=== PATIENT | female | born 1990 | race Caucasian/White ===

== ENCOUNTER 2020-07-22 19:46 | Emergency (ER) | payer SELFPAY ==
[2020-07-22 19:48] VITALS: BP 123/87; PULSE 96; RESP 18; TEMP 37; O2SAT 97; BMI 39.1
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
[2020-07-22] MEDS: Ibuprofen 400 MG Tablet 800 MG PO (21:03)
== END 2020-07-22 21:09 | disposition home or self-care (01) ==
LOC: ED 20:43
PROVIDERS: Emergency Provider Emergency Medicine
DX: S50.01XA Contusion of right elbow, initial encounter (principal); F17.200 Nicotine dependence, unspecified, uncomplicated; V43.62XA Car passenger injured in collision with other type car in traffic accident, initial encounter; Y93.I9 Activity, other involving external motion; Y92.410 Unspecified street and highway as the place of occurrence of the external cause; Y99.8 Other external cause status
CPT/HCPCS: 73080; 99284

== ENCOUNTER 2020-07-25 12:02 | Emergency (ER) | payer SELFPAY ==
[2020-07-25 12:03] VITALS: BP 138/79; PULSE 91; RESP 17; TEMP 36.3; O2SAT 100; BMI 37.2
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
[2020-07-25] MEDS: HYDROcodone Bitartrate/Apap 5/325 Tablet PO (12:46)
[2020-07-25] MEDS: Naproxen 500 MG Tablet PO (12:46)
== END 2020-07-25 13:42 | disposition home or self-care (01) ==
PROVIDERS: Emergency Provider Emergency Medicine
DX: S90.31XA Contusion of right foot, initial encounter (principal); S80.02XA Contusion of left knee, initial encounter; F17.200 Nicotine dependence, unspecified, uncomplicated; E66.9 Obesity, unspecified; V43.62XA Car passenger injured in collision with other type car in traffic accident, initial encounter; Y93.I9 Activity, other involving external motion; Y92.410 Unspecified street and highway as the place of occurrence of the external cause; Y99.8 Other external cause status
CPT/HCPCS: 73564; 73630; 99283

== ENCOUNTER 2021-05-16 12:49 | Emergency (ER) | payer MEDICAID, SELFPAY ==
[2021-05-16 12:49] VITALS: BP 142/91; PULSE 119; RESP 18; TEMP 37; O2SAT 98; BMI 35.4
--- NOTE | 2021-05-16 14:19 | US_ITS ---
STUDY: ULTRASOUND OF THE FEMALE PELVIS - COMPLETE REASON FOR EXAM: Female, 31 years old. Pelvic pain, r.o torsion LMP: 05/16/2021. TECHNIQUE: Transabdominal and Transvaginal TECHNICAL QUALITY: Adequate. COMPARISON: None. FINDINGS: The uterus is anteverted and is in a midline position. The uterus measures 7.9 cm x 5.0 cm x 4 cm. Normal uterine cervix. The endometrium measures 7 mm in thickness, and is hyperechoic. There is no demonstrated endometrial mass. There is no demonstrated myometrial mass. I.U.D. - The patient does not have an I.U.D. The right ovary is visualized. The right ovary measures 2.3 cm x 1.6 x 1.5 cm. There is no right ovarian cyst or ovarian mass. There is no visualized right adnexal mass or complex lesion. There is normal arterial and normal venous vascularity. The left ovary is visualized. The left ovary measures 2.8 cm x 2.3 cm x 1.9 cm. There is no left ovarian cyst or ovarian mass. There is no visualized left adnexal mass or complex lesion. There is normal arterial and normal venous vascularity. There is a moderate amount of fluid in the cul-de-sac. US/Transvaginal Non- IMPRESSION: Moderate amount of free fluid is seen in the cul-de-sac. Electronically Signed: Bladimir Hussein MD at 15:56 EDT , Service support ,
--- NOTE | 2021-05-16 14:21 | EX.ED.DYSGE1 ---
HPI History of Present Illness Chief Complaint: Abd Pain Informant: patient Onset/Context/Timing Onset: Yesterday Narrative Narrative: Patient is a 31-year-old female with history of PCOS presenting with lower abdominal cramping and abdominal pain. She states she has a mild nausea associated with it. She states that she started feel like she was having menstrual cramps yesterday but today she had pain that made her fall to the floor because it was so bad. She states is more sharp than menstrual cramps. She started having menstrual bleeding and she states it is like heavy period flow. She went to urgent care and was instructed to come to the emergency room. She not take anything for pain prior to arrival. Last menstrual period before today was 3 weeks ago. [facility] Medical History PCOS (polycystic ovarian syndrome) Home Medications ibuprofen 600 mg PO Q6H PRN #20 tab 05/16/21 [Rx Last Taken Unknown] Allergy/AdvReac Type Severity Reaction Status Date / Time No Known Allergies Allergy Verified 05/16/21 12:52 Social History Smoking Status: Current every day smoker tobacco type: cigarettes ROS ROS ED Constitutional Constitutional ED: Denies chills, fever(s) or malaise Eyes Eyes: Denies blurry vision or loss of vision ENT ENT ED: Denies rhinorrhea or sore throat Cardiovascular Cardiovascular: Denies chest pain or dizziness Respiratory/Chest Respiratory/Chest: Denies cough or dyspnea Gastrointestinal Gastrointestinal: Reports abdominal pain and nausea; Denies vomiting Genitourinary Genitourinary ED: Denies dysuria or hematuria Musculoskeletal Musculoskeletal: Denies arthralgias or myalgias Integumentary Denies rash or wounds Neurologic Neurologic: Denies focal weakness or headache(s) Psychiatric Psychiatric: Denies anxiety or behavioral changes EXAM Physical Exam Const Vital Signs: 05/16/21 12:49 05/16/21 16:54 Temperature 98.6 F Temperature Source Temporal Pulse Rate 119 H 77 Respiratory Rate 18 15 Blood Pressure 142/91 H 120/77 Blood Pressure Mean 108 Pulse Ox 98 97 Oxygen Delivery Method Room Air Positive well nourished, well developed and no apparent distress General Appearance ED: well developed HEENT Reports normocephalic atraumatic Nose: no nasal discharge External Ear: external ears normal Mouth ED: Yes moist mucous membranes normal Eyes PERRL and EOMs intact bilaterally Neck full ROM and no meningeal signs Chest Wall inspection of chest normal Resp normal respiratory effort and normal air movement Cardio regular rate, regular rhythm and no murmurs GI normal to inspection, nondistended, normoactive bowel sounds Palpation: soft and tender LLQ, RLQ and suprapubic; Negative for guarding Back/Spine no CVA tenderness Extremity normal to inspection and full ROM Neuro oriented x3 and no focal motor deficits Sensorium / Orientation: alert Psych mental status grossly normal and thought process normal Skin no rashes or lesions noted and no wounds MDM MDM MDM Narrative Medical decision making narrative: Patient is evaluated for pelvic cramping with associated vaginal bleeding. She did start her. But she is never had cramps this bad associate with it. She states he has a history of ovarian cyst. CBC is most consistent with vaginal contamination. Her abdomen is soft he does have tenderness in her pelvic region. She is given oral ibuprofen and Zofran with improvement of her hypertension and tachycardia. Transvaginal ultrasound shows free fluid in the cul-de-sac but no signs of torsion or ovarian cyst. I suspect the fluid is physiologic from her menstrual cycle. She is given 1 dose of [place] in the ER. She be discharged home with NSAID therapy and GLASS TECHNICIAN follow-up. She is referred to gynecology. She is counseled return precautions. Patient is counseled on signs and symptoms requiring return to the emergency room. Patient verbalizes agreement and understand this plan. Patient discharged home in stable and improved condition. Lab Data Attestation: I reviewed the patient's lab results. Labs: Laboratory Results - last 24 hr 05/16/21 14:45 Urine Color Yellow Urine Clarity Clear Urine pH 6.5 Ur Specific [place] 1.005 Urine Protein Negative Urine Glucose (UA) Normal Urine Ketones Negative Urine Occult Blood 250 H Urine Nitrite Negative Urine Bilirubin Negative Urine Urobilinogen Normal Ur Leukocyte Esterase 25 H Urine RBC 0-5 SEEN Urine WBC 0 SEEN Ur Squamous Epith Cells 0-5 SEEN Urine Bacteria 0 SEEN Urine Mucus 0 SEEN Urine Test Negative Radiography Diagnostic Testing: Radiology Impression Transvaginal US 05/16/21 14:19 IMPRESSION: Moderate amount of free fluid is seen in the cul-de-sac. Electronically Signed: Bladimir Hussein MD at 15:56 EDT , Service support , Discharge Plan Triage Chief Complaint: Abd Pain ED Provider: Olivia Aiken Dx/Rx/DC Orders Clinical Impression: Pelvic pain, Painful menstruation Instructions: ED MENSTRUAL CRAMPING, ED Pelvic Pain, Unknown Cause Prescriptions: New ibuprofen 600 mg tablet 600 mg PO Q6H PRN (Reason: pain) Qty: 20 RF: 0 Primary Care Provider: Care Physician,No Primary Referrals: Stephanie Dunaway MD [STAFF PHYSICIAN] - Care Physician,No Primary [Primary Care Provider] - Disposition Disposition: Home, Self Care Discharge Date/Time: 05/16/21 16:57
[2021-05-16] MEDS: Ibuprofen 600 MG Tablet PO (14:51)
[2021-05-16] MEDS: Ondansetron ODT 4 MG Tablet PO (14:52)
[2021-05-16 14:53] LABS: Bacteria 0 SEEN /hpf (None Seen); Mucous, Urine 0 SEEN /hpf (<or=2+); White Blood Cells 0 SEEN /hpf (0-5)
[2021-05-16 14:55] LABS: Color, Urine Yellow (Yellow); Glucose, Dipstick Normal (Normal); Ketone-Dipstick Negative (Negative); Leukocyte Esterase-Dipstick 25 /ul (Negative); Nitrite-Dipstick Negative (Negative); Occult Blood-Urine 250 /ul (Negative); Protein-Dipstick Negative (Negative); Specific Gravity, Urine 1.005 (1.002-1.030); Urine Bilirubin Dipstick Negative (Negative); Urine Clarity Clear (Clear); Urine Urobilinogen Normal (Normal); Urine pH 6.5 (5.0 - 8.0)
[2021-05-16 15:02] LABS: Red Blood Cells-Urine 0-5 SEEN /hpf (0-5); Squamous Epithelial Cells - UA 0-5 SEEN /hpf (5-10)
[2021-05-16 15:03] LABS: Internal QC Validated? YES +Cl - CLEAR BKGD; Pregnancy, Urine Negative Negative
[2021-05-16] MEDS: HYDROcodone Bitartrate/Apap 5/325 Tablet PO (16:52)
[2021-05-16 16:54] VITALS: BP 120/77; PULSE 77; RESP 15; O2SAT 97
== END 2021-05-16 16:57 | disposition home or self-care (01) ==
PROVIDERS: Emergency Provider Emergency Medicine
DX: N94.6 Dysmenorrhea, unspecified (principal); R10.2 Pelvic and perineal pain; F17.210 Nicotine dependence, cigarettes, uncomplicated
CPT/HCPCS: 76830; 81001; 81025; 99283

== ENCOUNTER 2021-05-23 13:48 | Emergency (ER) | payer MEDICAID, SELFPAY ==
[2021-05-23 13:49] VITALS: BP 117/85; PULSE 109; RESP 16; TEMP 36.2; O2SAT 98; BMI 35.4
[2021-05-23] MEDS: Ondansetron 4 MG/2 ML Vial IV (15:10)
[2021-05-23] MEDS: Morphine 4 MG/ML Syringe IV (15:11)
[2021-05-23] MEDS: 0.9% Normal Saline 1,000 ML 125 ML IV (15:13)
[2021-05-23 15:19] LABS: Absolute Neutrophil Count 16.9 X10^3/uL (2.0-7.7); Basophil# 0.04 X10^3/uL; Basophil% 0.2 % (0-1); Eosinophil# 0.07 X10^3/uL; Eosinophils% 0.4 % (0-5); Hematocrit 46.6 % (37-47); Hemoglobin 15.5 g/dL (12.0-15.0); Lymphocyte % 5.3 % (19-41); Mean Corp Hgb Conc 33.3 g/dL (32-36); Mean Corpuscular Hgb 30.3 pg (27.0-32.0); Mean Corpuscular Volume 91.2 fL (81-99); Mean Platelet Vol. 9.7 fl (6.2-12.0); Monocyte# 0.83 X10^3/uL; Monocyte% 4.4 % (0-10); NRBC Flagged by Analyzer 0 % (0-5); Neutrophil # 16.92 X10^3/uL (2.7-7.7); Neutrophil % 89.3 % (47-70); Platelet Count 352 K/mm3 (150-450); RBC Distribution Width CV 12.1 % (11.6-14.6); RBC Distribution Width SD 40.5 fl (35.1-43.9); Red Blood Count 5.11 M/mm3 (4.2-5.4); White Blood Count 18.9 K/mm3 (4.4-11.0)
[2021-05-23 15:35] LABS: AST(SGOT) 12 U/L (15-37); Alanine Aminotransfer ALT/SGPT 30 U/L (13-56); Albumin, Serum 3.9 g/dL (3.2-5.0); Alkaline Phosphatase 78 U/L (45-117); Anion Gap 7 (5-15); BUN 9 mg/dL (7-18); BUN/Creat Ratio 9.4 RATIO (10-20); Calcium,Total 9.8 mg/dL (8.5-10.1); Chloride 106 mmol/L (98-107); Creatinine, Serum 0.96 mg/dL (0.55-1.02); EST Glomerular Filtration Rate 71 mL/min (>60); Est Glom Filt Rate - Afr Amer 86 mL/min (>60); Estimated Creatinine Clearance 68.95 ml/min; Globulin 4.1 g/dL (2.2-4.2); Glucose 109 mg/dL (74-106); Lipase 50 U/L (73-393); Sodium Level 140 mmol/L (136-145)
[2021-05-23 16:30] LABS: Bacteria 0 SEEN /hpf (None Seen); Mucous, Urine 0 SEEN /hpf (<or=2+); Red Blood Cells-Urine 0 SEEN /hpf (0-5)
[2021-05-23 16:34] LABS: Color, Urine Yellow (Yellow); Glucose, Dipstick Normal (Normal); Ketone-Dipstick Negative (Negative); Leukocyte Esterase-Dipstick Negative /ul (Negative); Nitrite-Dipstick Negative (Negative); Occult Blood-Urine Negative /ul (Negative); Protein-Dipstick Negative (Negative); Urine Bilirubin Dipstick Negative (Negative); Urine Clarity Clear (Clear); Urine Urobilinogen Normal (Normal)
[2021-05-23 16:41] LABS: White Blood Cells 0-5 SEEN /hpf (0-5)
[2021-05-23 16:42] LABS: Internal QC Validated? YES +Cl - CLEAR BKGD; Pregnancy, Urine Negative Negative; Squamous Epithelial Cells - UA 0-5 SEEN /hpf (5-10)
--- NOTE | 2021-05-23 16:52 | CT_ITS ---
STUDY: CT ABDOMEN AND PELVIS WITH CONTRAST REASON FOR EXAM: Female, 31 years old. LLQ pain, fever RADIATION DOSAGE (If Supplied By Facility): CTDIvol = ( 16.08 ) mGy, DLP = ( 1150.27 ) mGycm TECHNIQUE: Transaxial images were obtained from the dome of the diaphragm to the symphysis pubis without oral contrast. IV 100mL Isovue-370 was administered. Sagittal and coronal images were reconstructed. Individualized dose optimization techniques were used for this CT. COMPARISON: None. FINDINGS: The visualized lung bases are unremarkable. The visualized portions of the heart are within normal limits. Normal liver. Normal gallbladder and extrahepatic biliary system. Normal spleen. Normal pancreas. Normal bilateral adrenal glands. Normal right kidney. Normal left kidney. Normal visualized stomach. Normal small intestine. There is diffuse submucosal thickening of the sigmoid colon with associated induration of the pericolonic fat suggesting a focal colitis. This is likely infectious or inflammatory. There is a subtle low-density 1.9 x 1.5 cm extra luminal collection which may represent an abscess. There is no air within it. Given the patient''s age, neoplastic process is unlikely but follow-up colonoscopy is recommended once the acute inflammatory changes have resolved The appendix is visualized and appears normal. Appendix seen on coronal recon images 55 through 60 Normal abdominal aorta. Normal inferior vena cava. Normal retroperitoneum. Normal urinary bladder. Normal appearing uterus. Physiologic ovarian cysts noted. Small amount of free fluid in the dependent pelvis likely due to the acute inflammation described above. Normal abdominal wall. Normal osseous structures. CT/Abdomen/Pelvis W IV Cont ONLY IMPRESSION: Acute inflammatory process involving the majority of the sigmoid colon with pericolonic inflammatory stranding and extraluminal low-density collection which may represent an abscess. There is no perforation. Further evaluation with colonoscopy is recommended once the acute inflammatory changes have resolved. Free fluid in the dependent pelvis likely from the inflammatory process described above No suspicious solid organ abnormality Electronically Signed: Kuldip Real MD at 17:22 EDT , Service support ,
--- NOTE | 2021-05-23 17:40 | EDS_ITS ---
HPI HPI - GI History of Present Illness Chief Complaint: Abd Pain Narrative Narrative: Patient presenting for evaluation secondary to abdominal pain. Patient states that she was here around a week ago for an onset of abdominal pain. She had work-up including pelvic ultrasound and lab work and was discharged with thoughts that this was secondary to dysmenorrhea. Patient states that she had complete resolution of her pain, but over the course of the last 2 to 3 days has had reemergence of the pain. Tender lower abdomen suprapubic and left side is worse with palpation's been associated with nausea. Patient denies any vomiting. She denies any diarrhea. She denies any urinary signs or symptoms of vaginal discharge or bleeding. Patient states that she is never had any history of abdominal surgeries in the past. Review of systems otherwise negative. PFSH PFSH Medical History PCOS (polycystic ovarian syndrome) Home Medications acetaminophen 500 mg PO Q6H PRN #1 cap 05/23/21 [Rx Last Taken Unknown] ibuprofen 400 mg PO Q6H PRN #1 tab 05/23/21 [Rx Last Taken Unknown] levofloxacin 750 mg PO DAILY #7 tab 05/23/21 [Rx Last Taken Unknown] metronidazole 500 mg PO Q6H #28 tab 05/23/21 [Rx Last Taken Unknown] oxycodone 5 mg PO Q6H PRN 3 Days #12 tab 05/23/21 [Rx Last Taken Unknown] Allergy/AdvReac Type Severity Reaction Status Date / Time No Known Allergies Allergy Verified 05/16/21 12:52 Surgical History History of D&C Social History Smoking Status: Current every day smoker tobacco type: cigarettes ROS ROS ED Constitutional Constitutional ED: Denies chills or fever(s) ENT ENT ED: Denies sore throat Cardiovascular Cardiovascular: Denies chest pain Respiratory/Chest Respiratory/Chest: Denies cough or dyspnea Gastrointestinal Gastrointestinal: Reports abdominal pain and nausea Genitourinary Genitourinary ED: Denies dysuria, hematuria or urinary frequency Musculoskeletal Musculoskeletal: Denies myalgias Integumentary Denies rash Neurologic Neurologic: Denies paresthesias or weakness Psychiatric Psychiatric: Denies depression Endocrine Endocrinology: Denies polyuria Hematologic/Lymphatic Hematologic/Lymphatic: Denies easy bleeding or easy bruising Allergic/Immunologic Allergic/Immunologic ED: Denies urticaria EXAM Physical Exam Const Vital Signs: 05/23/21 13:49 Temperature 97.1 F L Temperature Source Temporal Pulse Rate 109 H Respiratory Rate 16 Blood Pressure 117/85 H Blood Pressure Mean 95 Pulse Ox 98 Oxygen Delivery Method Room Air Positive well nourished and well developed General Appearance ED: well developed and NAD HEENT normocephalic and atraumatic Eyes EOMs intact bilaterally General Eye ED: Negative for pale conjunctiva or scleral icterus Neck no lymphadenopathy and supple Resp normal respiratory effort and clear to auscultation bilaterally Cardio regular rate, regular rhythm, no murmurs and peripheral pulses 2+ throughout GI non-distended and no masses Palpation: soft and tender LLQ and suprapubic; Negative for guarding, rigid or rebound tenderness present Back/Spine no CVA tenderness Extremity full ROM General Extremety ED: Negative for edema General Extremity: Negative for edema Neuro moves all extremities and no sensory deficits noted Sensorium / Orientation: alert, oriented to person, oriented to place and oriented to time Motor Exam: strength 5/5 throughout Psych mental status grossly normal Skin Rashes: no rashes MDM MDM MDM Narrative Medical decision making narrative: Patient presented secondary to abdominal pain. I reviewed her records, she had a basically negative pelvic ultrasound except for some free fluid. Repeat laboratory work-up was obtained. Patient was noted to have a leukocytosis at 18.9 thousand with a neutrophilic predominance. Chemistry and liver panel were found to be unremarkable urinalysis was negative, patient was not . She was given morphine and Zofran for treatment of pain. CT abdomen and pelvis demonstrates the patient to have inflammatory changes of her sigmoid colon, and potential development of an area of abscess. Patient was started on Zosyn. A believe the patient requires admission at this point. This could potentially be diverticulitis versus localized colitis versus inflammatory bowel disease versus tumor, but the patient will require colonoscopy at some point. Patient was discussed with the hospitalist, Dr Ritter, who requested that the patient be discussed with general surgery. I discussed the patient with general surgery, Dr Del Real who after reviewing the CT does not feel this to require surgery. I conveyed this to Dr. Ritter who agreed to see the patient Lab Data Labs: Laboratory Results - last 24 hr 05/23/21 05/23/21 05/23/21 15:10 15:10 16:24 WBC 18.9 H RBC 5.11 Hgb 15.5 H Hct 46.6 MCV 91.2 MCH 30.3 MCHC 33.3 RDW Std Deviation 40.5 RDW Coeff of Joey 12.1 Plt Count 352 MPV 9.7 Immature Gran % (Auto) 0.400 Neut % (Auto) 89.3 H Lymph % (Auto) 5.3 L [place] % (Auto) 4.4 Eos % (Auto) 0.4 Baso % (Auto) 0.2 Absolute Neuts (auto) 16.9 H Absolute Lymphs (auto) 1.00 Nucleated RBC % 0 Sodium 140 Potassium 4.0 Chloride 106 Carbon Dioxide 27.0 Anion Gap 7 BUN 9 Creatinine 0.96 Estim Creat Clear Calc 68.95 Est GFR (MDRD) Af Amer 86 Est GFR (MDRD) Non-Af 71 BUN/Creatinine Ratio 9.4 L Glucose 109 H Calcium 9.8 Total Bilirubin 0.40 AST 12 L ALT 30 Alkaline Phosphatase 78 Total Protein 8.0 Albumin 3.9 Globulin 4.1 Albumin/Globulin Ratio 1.0 Lipase 50 L Urine Color Yellow Urine Clarity Clear Urine pH 6.0 Ur Specific [place] 1.030 Urine Protein Negative Urine Glucose (UA) Normal Urine Ketones Negative Urine Occult Blood Negative Urine Nitrite Negative Urine Bilirubin Negative Urine Urobilinogen Normal Ur Leukocyte Esterase Negative Urine RBC 0 SEEN Urine WBC 0-5 SEEN Ur Squamous Epith Cells 0-5 SEEN Urine Bacteria 0 SEEN Urine Mucus 0 SEEN Urine Test Negative Radiography Diagnostic Testing: Radiology Impression Abdomen/Pelvis CT 05/23/21 16:52 IMPRESSION: Acute inflammatory process involving the majority of the sigmoid colon with pericolonic inflammatory stranding and extraluminal low-density collection which may represent an abscess. There is no perforation. Further evaluation with colonoscopy is recommended once the acute inflammatory changes have resolved. Free fluid in the dependent pelvis likely from the inflammatory process described above No suspicious solid organ abnormality Electronically Signed: Kuldip Real MD at 17:22 EDT , Service support , Discharge Plan Triage Chief Complaint: Abd Pain ED Provider: Ruhlin,Colton Dx/Rx/DC Orders Clinical Impression: Colitis, Intra-abdominal abscess Prescriptions: New levofloxacin 750 mg tablet 750 mg PO DAILY Qty: 7 RF: 0 metronidazole 500 mg tablet 500 mg PO Q6H Qty: 28 RF: 0 oxycodone 5 mg tablet 5 mg PO Q6H PRN (Reason: pain (scale score 7-10)) 3 Days Qty: 12 RF: 0 ibuprofen 400 mg tablet 400 mg PO Q6H PRN (Reason: fever or pain) Qty: 1 RF: 0 acetaminophen 500 mg capsule 500 mg PO Q6H PRN (Reason: fever or pain) Qty: 1 RF: 0 Primary Care Provider: Care Physician,No Primary Referrals: Kayla Del Real MD [STAFF PHYSICIAN] - 05/24/21 1:00 pm (Follow up after 1pm. Call prior.) Care Physician,No Primary [Primary Care Provider] - Disposition Disposition: Acute Care Hospital [facility]
--- NOTE | 2021-05-23 17:48 | NURSING ---
dr andrea mendiola
--- NOTE | 2021-05-23 18:28 | PCM.DC ---
Discharge Instructions Diet Discharge Diet: - (Clear liquid diet until seen by Dr. Del Real) Dressing / Incision Call your doctor if you observe: Fever of 101 or Higher and - (worsening abdominal pain) Follow Up Care Test Results: Test results from this visit will be discussed in further detail at your follow-up appointment, if applicable. Discharge Plan Triage Chief Complaint: Abd Pain ED Provider: Colton Hayes Dx/Rx/DC Orders Clinical Impression: Colitis Prescriptions: New levofloxacin 750 mg tablet 750 mg PO DAILY Qty: 7 RF: 0 metronidazole 500 mg tablet 500 mg PO Q6H Qty: 28 RF: 0 oxycodone 5 mg tablet 5 mg PO Q6H PRN (Reason: pain (scale score 7-10)) 3 Days Qty: 12 RF: 0 ibuprofen 400 mg tablet 400 mg PO Q6H PRN (Reason: fever or pain) Qty: 1 RF: 0 acetaminophen 500 mg capsule 500 mg PO Q6H PRN (Reason: fever or pain) Qty: 1 RF: 0 Primary Care Provider: Care Physician,No Primary Referrals: Care Physician,No Primary [Primary Care Provider] - Kayla Del Real MD [STAFF PHYSICIAN] - 05/24/21 1:00 pm (Follow up after 1pm. Call prior.) Disposition Disposition: Home, Self Care
--- NOTE | 2021-05-23 18:36 | PCM.CONS.GEN ---
Assessment & Plan Assessment/Plan (1) Colitis: PLAN: 1. Acute diverticulitis Reviewed this with Dr. Del Real, who does not feel the patient has an abscess she states that the patient to follow-up with her tomorrow after 1PM and to continue with clear liquid diet. Discussed with the patient and offered the patient the option to be admitted to continue with IV antibiotics or to follow-up general surgery tomorrow continue with oral antibiotics. Patient chose the latter. Patient has been ordered Pipracil/tazobactam and patient can be discharged after that. While the patient complete a 7-day course of levofloxacin and metronidazole. Patient does have abdominal pain so she also received 3-day course of oxycodone but she can also take acetaminophen and ibuprofen. Patient made aware of the potential risk of perforation which she would have severe abdominal pain. There is no evidence of that of that at this time. Informed patient that she will need a colonoscopy but colonoscopy is not indicated given the acute inflammation that she is currently experiencing and the potential risk for perforation. She will need that in the future. HPI Consult Data Date of Consult: 05/23/21 HPI Narrative Reason for Consultation: Diverticulitis HPI Narrative: SY GIBBS, is a 31 F who presents 1 week of abdominal pain. Was seen and was thought to have had menstrual cramps. Pain waxes and wanes but overall has gotten worse. Has been eating and drinking during this time. So presented to the emergency room today and had a CAT scan that showed acute inflammatory process involving the majority of the sigmoid colon with a pericolonic inflammatory stranding with extraluminal low-density collection. That may represent an abscess. The hospitalist service was contacted for admission. Patient has never had diverticulitis before. [facility] Medical History PCOS (polycystic ovarian syndrome) Home Medications acetaminophen 500 mg PO Q6H PRN #1 cap 05/23/21 [Rx Last Taken Unknown] ibuprofen 400 mg PO Q6H PRN #1 tab 05/23/21 [Rx Last Taken Unknown] levofloxacin 750 mg PO DAILY #7 tab 05/23/21 [Rx Last Taken Unknown] metronidazole 500 mg PO Q6H #28 tab 05/23/21 [Rx Last Taken Unknown] oxycodone 5 mg PO Q6H PRN 3 Days #12 tab 05/23/21 [Rx Last Taken Unknown] Allergy/AdvReac Type Severity Reaction Status Date / Time No Known Allergies Allergy Verified 05/16/21 12:52 Surgical History History of D&C Social History Smoking Status: Current every day smoker tobacco type: cigarettes ROS ROS Narrative Chills. No vomiting. Nausea. Some difficulty urinating. All review of systems were negative except as mentioned above in the history of present illness and the other review of systems. Last was. Was a week ago. Has not been sexually active since that time. Physical Exam Const alert General Appearance: cooperative HEENT normocephalic Resp normal respiratory effort, no retractions, no use of accessory muscles and clear to auscultation bilaterally Cardio regular rate, regular rhythm, S1 normal heart sound and S2 normal heart sound GI GI Narrative: Slightly distended. No rebound tenderness. Mild diffuse tenderness. Extremity normal to inspection and full ROM Skin no rashes or lesions noted Neuro Sensorium / Orientation: awake and alert Lab / Micro Data Attestation: I reviewed the patient's lab results. Result Diagrams: 05/23/21 15:10 05/23/21 15:10 Labs: Laboratory Results - last 24 hr 05/23/21 15:10: WBC 18.9 H, RBC 5.11, Hgb 15.5 H, Hct 46.6, MCV 91.2, MCH 30.3, MCHC 33.3, RDW Std Deviation 40.5, RDW Coeff of Joey 12.1, Plt Count 352, MPV 9.7, Immature Gran % (Auto) 0.400, Neut % (Auto) 89.3 H, Lymph % (Auto) 5.3 L, [place] % (Auto) 4.4, Eos % (Auto) 0.4, Baso % (Auto) 0.2, Absolute Neuts (auto) 16.9 H, Absolute Lymphs (auto) 1.00, Nucleated RBC % 0 05/23/21 15:10: Sodium 140, Potassium 4.0, Chloride 106, Carbon Dioxide 27.0, Anion Gap 7, BUN 9, Creatinine 0.96, Estim Creat Clear Calc 68.95, Est GFR (MDRD) Af Amer 86, Est GFR (MDRD) Non-Af 71, BUN/Creatinine Ratio 9.4 L, Glucose 109 H, Calcium 9.8, Total Bilirubin 0.40, AST 12 L, ALT 30, Alkaline Phosphatase 78, Total Protein 8.0, Albumin 3.9, Globulin 4.1, Albumin/Globulin Ratio 1.0, Lipase 50 L 05/23/21 16:24: Urine Color Yellow, Urine Clarity Clear, Urine pH 6.0, Ur Specific [place] 1.030, Urine Protein Negative, Urine Glucose (UA) Normal, Urine Ketones Negative, Urine Occult Blood Negative, Urine Nitrite Negative, Urine Bilirubin Negative, Urine Urobilinogen Normal, Ur Leukocyte Esterase Negative, Urine RBC 0 SEEN, Urine WBC 0-5 SEEN, Ur Squamous Epith Cells 0-5 SEEN, Urine Bacteria 0 SEEN, Urine Mucus 0 SEEN, Urine Test Negative Radiology Impression Abdomen/Pelvis CT 05/23/21 16:52 IMPRESSION: Acute inflammatory process involving the majority of the sigmoid colon with pericolonic inflammatory stranding and extraluminal low-density collection which may represent an abscess. There is no perforation. Further evaluation with colonoscopy is recommended once the acute inflammatory changes have resolved. Free fluid in the dependent pelvis likely from the inflammatory process described above No suspicious solid organ abnormality Electronically Signed: Kuldip Real MD at 17:22 EDT , Service support , Charges/Coding Visit Charges Office Visits / Consults: [id number] OP Consult L3
[2021-05-23 19:42] VITALS: PULSE 74; RESP 15; O2SAT 99
== END 2021-05-23 19:43 | disposition home or self-care (01) ==
PROVIDERS: Emergency Provider Emergency Medicine
DX: K52.9 Noninfective gastroenteritis and colitis, unspecified (principal); F17.210 Nicotine dependence, cigarettes, uncomplicated
CPT/HCPCS: 74177; 80053; 81001; 81025; 83690; 85025; 96361; 96365; 96366; 96375; 99283; J7030; J7050; Q9967; A4216; J2405

== ENCOUNTER 2021-05-26 13:52 | Observation (INO) | payer MEDICAID, SELFPAY ==
[2021-05-26 13:53] VITALS: BP 122/83; PULSE 107; RESP 16; TEMP 36.6; O2SAT 98; BMI 35.4
--- NOTE | 2021-05-26 14:26 | CT_ITS ---
STUDY: CT ABDOMEN AND PELVIS WITH CONTRAST REASON FOR EXAM: Female, 31 years old. Abdominal Pain. History of diverticulitis. RADIATION DOSAGE (If Supplied By Facility): CTDIvol = ( 11.63 ) mGy, DLP = ( 866.09 ) mGycm TECHNIQUE: Transaxial images were obtained from the dome of the diaphragm to the symphysis pubis without oral contrast. IV 100ML ISOVUE 300 was administered. Sagittal and coronal images were reconstructed. Individualized dose optimization techniques were used for this CT. COMPARISON: Comparison is made with prior examination dated 05/23/2021. FINDINGS: Mild degree of increased markings at the lung bases suggestive of bibasilar atelectasis. The visualized portions of the heart are within normal limits. Normal liver. Normal gallbladder and extrahepatic biliary system. Normal spleen. Normal pancreas. Normal bilateral adrenal glands. Normal right kidney. Normal left kidney. Normal visualized stomach. Normal small intestine. There is diverticulosis, with thickening of the colon wall, and pericolonic inflammation changes consistent with acute diverticulitis. Persistent increased markings in the surrounding mesenteric fat suggestive of inflammatory change. No focal abscess is seen at this time. The appendix is visualized and appears normal. Normal abdominal aorta. Normal inferior vena cava. There is borderline retroperitoneal lymphadenopathy with enlarged nodes no greater than 10mm in the short axis diameter. Normal urinary bladder. Small amount of free fluid is seen in the pelvis. Small follicles are seen within the right ovary. Normal abdominal wall. Normal osseous structures. CT/Abdomen/Pelvis W IV Cont ONLY IMPRESSION: Persistent inflammatory changes surrounding the sigmoid colon in keeping with acute sigmoid diverticulitis. No focal abscess collection is seen at this time. Small amount of free fluid in the cul-de-sac. Electronically Signed: Bladimir Hussein MD at 15:16 EDT , Service support ,
--- NOTE | 2021-05-26 14:27 | ED.VIS.GI ---
HPI HPI - GI History of Present Illness Chief Complaint: Abd Pain Narrative Narrative: Patient presents with increasing abdominal pain in the suprapubic to bilateral lower quadrants. She is relates history that she was seen in the emergency department over a week ago, and discharged. She was told that she had menstrual cramps. She returned 4 days ago, where CT was performed and she was started on antibiotics for diverticulitis. She followed up with general surgery, Dr. Del Real, who examined her on Saturday, and had her return today. She complains of subjective fever and nausea but no vomiting. She states that she was advised to return to the emergency department because of her continued pain, and her symptoms have not improved. Pain is worse with lying flat and movement. Essentially relieved by nothing. PFSH PFSH Medical History PCOS (polycystic ovarian syndrome) Home Medications levofloxacin 750 mg PO DAILY #7 tab 05/23/21 [Rx Last Taken Unknown] metronidazole 500 mg PO Q6H #28 tab 05/23/21 [Rx Last Taken Unknown] oxycodone 5 mg PO Q6H PRN 3 Days #12 tab 05/23/21 [Rx Last Taken Unknown] Allergy/AdvReac Type Severity Reaction Status Date / Time No Known Allergies Allergy Verified 05/26/21 13:55 Surgical History History of D&C Social History Smoking Status: Current every day smoker tobacco type: cigarettes ROS ROS ED ROS Narrative Constitutional: No fever, no chills. HEENT: No sore throat. No neck pain. No loss of vision. No rhinorrhea. Cardiovascular: No chest pain. No palpitations. No pedal edema. Respiratory: No cough, no shortness of breath. Abdominal: Bilateral lower quadrant abdominal pain. Positive nausea. No vomiting. Genitourinary: No dysuria. No hematuria. Musculoskeletal: No myalgias. No arthralgias. Neurologic: No headaches. No dizziness. No lightheadedness. Skin: No rash. No change in color. Psychiatric: No depression. No anxiety. EXAM Physical Exam Narrative Exam Narrative: Afebrile. Vital signs noted. HEENT: Normocephalic. Atraumatic. PERRL, EOMI. Neck soft and supple. No point tenderness or step off. Cardiovascular: Regular rate and rhythm. No murmurs, rubs, or gallops appreciated. Respiratory: No tachypnea. Lungs clear to auscultation bilaterally. Gastrointestinal: Abdomen soft, tenderness to palpation in left lower quadrant to suprapubic area, with normoactive bowel sounds. No rebound or guarding. Neurological: Awake. Alert. Nonfocal, nonlateralizing. Skin: No rash. Normal color. No pallor. Musculoskeletal: No pedal edema. Full range of motion extremities. Const Vital Signs: 05/26/21 13:53 05/26/21 16:02 Temperature 97.8 F 98.2 F Temperature Source Temporal Oral Pulse Rate 107 H 81 Respiratory Rate 16 16 Blood Pressure 122/83 H 110/70 Blood Pressure Mean 96 83 Pulse Ox 98 97 Oxygen Delivery Method Room Air Room Air MDM MDM MDM Narrative Medical decision making narrative: I reviewed her prior records. I will administer IV antibiotics and parenteral analgesia. I will obtain CBC, CMP, lactic acid, and CT with IV contrast to look for fluid collection or perforation. She was sent home on levofloxacin and metronidazole. She had been evaluated by general surgery in the emergency department. I will start her on Zosyn again. Patient's white count has lowered to 14.1, but is still elevated. Hemoglobin stable at 14.0. Sodium slightly low 135. test, serum, was negative. Lactic acid normal at 1.0. CT of the abdomen and pelvis with IV contrast shows no evidence of a fluid collection. There is still inflammation of the sigmoid colon. Given her failure of outpatient treatment, I do feel that she requires admission, additionally for pain control. Initially I discussed patient with Dr. Hill for admission, who requested that I at least speak with Dr. Del Real with surgery as she has been following this patient as an outpatient. Dr. Del Real would like her admitted to medicine. I rediscussed the patient with Dr. Hill. Patient will be admitted in stable condition. Lab Data Attestation: I reviewed the patient's lab results. Labs: Laboratory Results - last 24 hr 05/26/21 05/26/21 05/26/21 14:12 14:12 14:12 WBC 14.1 H RBC 4.61 Hgb 14.0 Hct 41.4 MCV 89.8 MCH 30.4 MCHC 33.8 RDW Std Deviation 39.6 RDW Coeff of Joey 12.1 Plt Count 337 MPV 9.7 Immature Gran % (Auto) 0.400 Neut % (Auto) 85.4 H Lymph % (Auto) 6.8 L [place] % (Auto) 6.8 Eos % (Auto) 0.3 Baso % (Auto) 0.3 Absolute Neuts (auto) 12.0 H Absolute Lymphs (auto) 0.96 Nucleated RBC % 0 Sodium 135 L Potassium 3.6 Chloride 101 Carbon Dioxide 26.0 Anion Gap 8 BUN 9 Creatinine 0.90 Estim Creat Clear Calc 73.55 Est GFR (MDRD) Af Amer 93 Est GFR (MDRD) Non-Af 77 BUN/Creatinine Ratio 10.0 Glucose 103 Lactic Acid Calcium 9.6 Total Bilirubin 0.60 AST 12 L ALT 19 Alkaline Phosphatase 68 Total Protein 8.0 Albumin 3.1 L Globulin 4.9 H Albumin/Globulin Ratio 0.6 L Serum , Qual NEGATIVE 05/26/21 14:40 WBC RBC Hgb Hct MCV MCH MCHC RDW Std Deviation RDW Coeff of Joey Plt Count MPV Immature Gran % (Auto) Neut % (Auto) Lymph % (Auto) [place] % (Auto) Eos % (Auto) Baso % (Auto) Absolute Neuts (auto) Absolute Lymphs (auto) Nucleated RBC % Sodium Potassium Chloride Carbon Dioxide Anion Gap BUN Creatinine Estim Creat Clear Calc Est GFR (MDRD) Af Amer Est GFR (MDRD) Non-Af BUN/Creatinine Ratio Glucose Lactic Acid 1.0 Calcium Total Bilirubin AST ALT Alkaline Phosphatase Total Protein Albumin Globulin Albumin/Globulin Ratio Serum , Qual Radiography Diagnostic Testing: Radiology Impression Abdomen/Pelvis CT 05/26/21 14:26 IMPRESSION: Persistent inflammatory changes surrounding the sigmoid colon in keeping with acute sigmoid diverticulitis. No focal abscess collection is seen at this time. Small amount of free fluid in the cul-de-sac. Electronically Signed: Bladimir Hussein MD at 15:16 EDT , Service support , Discharge Plan Triage Chief Complaint: Abd Pain ED Provider: Reodica,Greg Dx/Rx/DC Orders Prescriptions: No Action levofloxacin 750 mg tablet 750 mg PO DAILY Qty: 7 RF: 0 metronidazole 500 mg tablet 500 mg PO Q6H Qty: 28 RF: 0 oxycodone 5 mg tablet 5 mg PO Q6H PRN (Reason: pain (scale score 7-10)) 3 Days Qty: 12 RF: 0 Primary Care Provider: Care Physician,No Primary
[2021-05-26 14:33] LABS: Absolute Lymphocyte Count 0.96 X10^3/uL (0.83-4.51); Basophil# 0.04 X10^3/uL; Basophil% 0.3 % (0-1); Eosinophil# 0.04 X10^3/uL; Eosinophils% 0.3 % (0-5); Hematocrit 41.4 % (37-47); Lymphocyte # 0.96 X10^3/ul (0.83-4.51); Lymphocyte % 6.8 % (19-41); Mean Corp Hgb Conc 33.8 g/dL (32-36); Mean Corpuscular Hgb 30.4 pg (27.0-32.0); Mean Corpuscular Volume 89.8 fL (81-99); Mean Platelet Vol. 9.7 fl (6.2-12.0); Monocyte# 0.95 X10^3/uL; Monocyte% 6.8 % (0-10); NRBC Flagged by Analyzer 0 % (0-5); Neutrophil # 12.02 X10^3/uL (2.7-7.7); Neutrophil % 85.4 % (47-70); Platelet Count 337 K/mm3 (150-450); RBC Distribution Width CV 12.1 % (11.6-14.6); RBC Distribution Width SD 39.6 fl (35.1-43.9); Red Blood Count 4.61 M/mm3 (4.2-5.4); White Blood Count 14.1 K/mm3 (4.4-11.0)
[2021-05-26 14:38] LABS: Internal QC Validated? YES +Cl - CLEAR BKGD; Pregnancy, Serum, hCG Quali. NEGATIVE Negative
[2021-05-26] MEDS: Ondansetron 4 MG/2 ML Vial IV ×2 (14:39→21:22)
[2021-05-26] MEDS: Morphine 4 MG/ML Syringe IV ×2 (14:39→18:46)
[2021-05-26] MEDS: 0.9% Normal Saline 1,000 ML 1000 ML IV (14:39)
[2021-05-26 14:53] LABS: ALB/GLOB Ratio 0.6 RATIO (0.9-2.4); AST(SGOT) 12 U/L (15-37); Alanine Aminotransfer ALT/SGPT 19 U/L (13-56); Albumin, Serum 3.1 g/dL (3.2-5.0); Alkaline Phosphatase 68 U/L (45-117); Anion Gap 8 (5-15); BUN 9 mg/dL (7-18); Calcium,Total 9.6 mg/dL (8.5-10.1); Chloride 101 mmol/L (98-107); EST Glomerular Filtration Rate 77 mL/min (>60); Est Glom Filt Rate - Afr Amer 93 mL/min (>60); Estimated Creatinine Clearance 73.55 ml/min; Globulin 4.9 g/dL (2.2-4.2); Glucose 103 mg/dL (74-106); Potassium 3.6 mmol/L (3.5-5.1); Sodium Level 135 mmol/L (136-145)
[2021-05-26 16:02] VITALS: BP 110/70; PULSE 81; RESP 16; TEMP 36.8; O2SAT 97
[2021-05-26 17:01] VITALS: BP 110/70; PULSE 81; RESP 16; TEMP 36.8; O2SAT 97
--- NOTE | 2021-05-26 17:57 | PCM.HP.STD ---
HPI - General HPI Narrative SY GIBBS, is a 31 F who presented to the emergency department [facility] on 05/26/2021 secondary to increasing abdominal pain. Patient was evaluated in the emergency department 4 days ago where a CT of her abdomen pelvis was performed and noted sigmoid diverticulitis. She was discharged home on oral antibiotics and followed up with general surgery, Dr. Del Real, who examined her today and had her return to the emergency department for reevaluation secondary to subjective fevers, nausea, and vomiting. She states her last emesis was yesterday. The emesis has predominantly consisted of bile. She states that currently her pain is better but was worse with movement and lying flat but relieved by nothing. Repeat CT of her abdomen and pelvis was performed and it appears as if her diverticulitis has actually improved but there is still inflammation of the sigmoid colon. Her leukocytosis has improved and her CBC is otherwise unremarkable. Her CMP is also unremarkable. Qualitative serum test is negative. She was started on IV antibiotics in the emergency department. We will admit to medical surgical floor for continued IV antibiotics. [facility] Medical History PCOS (polycystic ovarian syndrome) Home Medications levofloxacin 750 mg PO DAILY #7 tab 05/23/21 [Rx Last Taken Unknown] metronidazole 500 mg PO Q6H #28 tab 05/23/21 [Rx Last Taken Unknown] oxycodone 5 mg PO Q6H PRN 3 Days #12 tab 05/23/21 [Rx Last Taken Unknown] Allergy/AdvReac Type Severity Reaction Status Date / Time No Known Allergies Allergy Verified 05/26/21 13:55 Surgical History History of D&C Social History Smoking Status: Current every day smoker tobacco type: cigarettes ROS Constitutional Constitutional: Reports anorexia, chills, fever(s) and malaise; Denies change in weight, fatigue, night sweats, weakness or other Eyes Eyes: Denies blurry vision, change in eye color, change in vision, discharge from eye(s), double vision, erythema, eye pain, loss of vision or other ENT HEENT: Denies abnormal hearing, dysphagia, ear pain, epistaxis, headache(s), hearing loss, nasal congestion, nasal discharge, post nasal drip, sinus pressure, sore throat or other Cardiovascular Cardiovascular: Denies chest pain, claudication, dyspnea on exertion, edema, lightheadedness, orthopnea, palpitations, paroxysmal nocturnal dyspnea, rapid heart rate, syncope or other Respiratory/Chest Respiratory/Chest: Denies cough, dyspnea, excessive phlegm production, hemoptysis, productive cough, shortness of breath at rest, shortness of breath with exertion, wheezing or other Gastrointestinal Gastrointestinal: Reports abdominal pain, nausea and vomiting; Denies coffee ground emesis, constipation, diarrhea, dyspepsia, hematemesis, hematochezia, loose stools, melena or other Genitourinary Genitourinary: Denies burning urination, difficulty urinating, dysuria, hematuria, nocturia, urinary frequency, urinary hesitancy, urinary incontinence, urinary urgency or other Musculoskeletal Musculoskeletal: Denies arthralgias, back pain, joint pain, joint stiffness, joint swelling, myalgias, neck pain or other Neurologic Neurologic: Denies abnormal gait, abnormal speech, confusion, disequilibrium, dizziness, focal weakness, headache(s), numbness, paresthesias, seizure-like activity, seizures, syncope, tingling, tremor(s) or other Psychiatric Psychiatric: Denies anxiety, depression, homicidal ideation, suicidal ideation or other Endocrine Endocrinology: Denies change in body appearance, cold intolerance, excessive sweating, heat intolerance, polydipsia, polyuria or other Hematologic/Lymphatic Hematologic/Lymphatic: Denies anemia, easy bleeding, easy bruising, lymphadenopathy or other Allergic/Immunologic Allergic/Immunologic: Denies rhinitis, hives, eczemia, asthma or other Vital Signs Vital Signs Vital Signs: 05/26/21 13:53 05/26/21 16:02 05/26/21 17:01 Temperature 97.8 F 98.2 F 98.2 F Temperature Source Temporal Oral Oral Pulse Rate 107 H 81 81 Respiratory Rate 16 16 16 Blood Pressure 122/83 H 110/70 110/70 Blood Pressure Mean 96 83 83 Pulse Ox 98 97 97 Oxygen Delivery Method Room Air Room Air Room Air Weight Weight: 90.718 kg Body Mass Index (BMI) 35.4 Physical Exam Const alert, oriented x3 and no apparent distress Constitutional Narrative: Obese young white female, sitting in bed, appears comfortable, nontoxic General Appearance: cooperative HEENT normocephalic, head/scalp atraumatic and dentition normal HEENT Narrative: Mucous membranes are slightly dry, dentition normal Resp normal respiratory effort, no retractions, no use of accessory muscles and clear to auscultation bilaterally Auscultation: Negative for crackles, rales, rhonchi or wheezes Cardio regular rate, regular rhythm, S1 normal heart sound, no murmurs, no rub, no gallops, no clicks and no JVD GI normal to inspection, nondistended, normoactive bowel sounds, soft to palpation and non-distended Palpation: tender LLQ Extremity normal to inspection and no clubbing, cyanosis or edema Peripheral Pulses: Yes pulses 2+ throughout Neuro oriented x3 and moves all extremities Sensorium / Orientation: awake and alert Speech: speech normal Psych affect normal Results Lab / Micro Data Attestation: I reviewed the patient's lab results. Result Diagrams: 05/26/21 14:12 05/26/21 14:12 Labs: Laboratory Results - last 24 hr 05/26/21 14:12: WBC 14.1 H, RBC 4.61, Hgb 14.0, Hct 41.4, MCV 89.8, MCH 30.4, MCHC 33.8, RDW Std Deviation 39.6, RDW Coeff of Joey 12.1, Plt Count 337, MPV 9.7, Immature Gran % (Auto) 0.400, Neut % (Auto) 85.4 H, Lymph % (Auto) 6.8 L, [place] % (Auto) 6.8, Eos % (Auto) 0.3, Baso % (Auto) 0.3, Absolute Neuts (auto) 12.0 H, Absolute Lymphs (auto) 0.96, Nucleated RBC % 0 05/26/21 14:12: Sodium 135 L, Potassium 3.6, Chloride 101, Carbon Dioxide 26.0, Anion Gap 8, BUN 9, Creatinine 0.90, Estim Creat Clear Calc 73.55, Est GFR (MDRD) Af Amer 93, Est GFR (MDRD) Non-Af 77, BUN/Creatinine Ratio 10.0, Glucose 103, Calcium 9.6, Total Bilirubin 0.60, AST 12 L, ALT 19, Alkaline Phosphatase 68, Total Protein 8.0, Albumin 3.1 L, Globulin 4.9 H, Albumin/Globulin Ratio 0.6 L 05/26/21 14:12: Serum , Qual NEGATIVE 05/26/21 14:40: Lactic Acid 1.0 Micro: Microbiology 05/26/21 16:00 Nasal Secretion SARS-CoV-2 Antigen (Rapid) - Final Radiology Impression Abdomen/Pelvis CT 05/26/21 14:26 IMPRESSION: Persistent inflammatory changes surrounding the sigmoid colon in keeping with acute sigmoid diverticulitis. No focal abscess collection is seen at this time. Small amount of free fluid in the cul-de-sac. Electronically Signed: Bladimir Hussein MD at 15:16 EDT , Service support , Assessment & Plan Assessment/Plan (1) Diverticulitis: (2) Leukocytosis: PLAN: Acute diverticulitis -Patient with worsening pain but improved leukocytosis -Patient with some nausea but it sounds as if it may be medication related -We will start on Zosyn -Morphine for pain -Clear liquid diet -If clinically improved in the morning would start regular diet and assess for tolerance and consider changing home antibiotics to complete treatment -CT was reviewed and is actually improving when compared to previous CT from acute few days previously -Consult general surgery Leukocytosis -Improving -Repeat CBC in a.m. Tobacco abuse -Patient smokes approximately 1/2 pack/day -Denies need for any nicotine replacement therapy at this time -Recommend cessation DVT prophylaxis Lovenox CODE STATUS -Full code Charges/Coding Visit Charges Inpatient E&M: 05749 Init Hosp L2
[2021-05-26 18:26] VITALS: O2SAT 95
[2021-05-26 18:59] VITALS: BMI 28.6
[2021-05-26 19:00] VITALS: BP 110/67; PULSE 84; RESP 16; TEMP 36.7; O2SAT 95
[2021-05-26] MEDS: 0.9% Normal Saline 1,000 ML 100 ML IV (19:57)
--- NOTE | 2021-05-26 20:10 | PCS.PANDOC ---
PANDEMIC DOCUMENTATION INITIATED: Date: 04/24/2021 Time: 190
[2021-05-26] MEDS: Enoxaparin 40 MG/0.4 ML Syringe SC (21:22)
[2021-05-26 21:36] VITALS: O2SAT 99
[2021-05-27 01:00] VITALS: BP 102/63; PULSE 88; RESP 18; TEMP 37.2; O2SAT 99
[2021-05-27] MEDS: 0.9% Saline Lock 10 ML Syringe IV ×4 (01:21→13:25)
[2021-05-27] MEDS: HYDROmorphone 0.5 MG/0.5 ML SYRINGE IV ×3 (01:21→13:25)
[2021-05-27] MEDS: 0.9% Normal Saline 1,000 ML 100 ML IV ×2 (06:01→16:11)
[2021-05-27 06:17] VITALS: BP 116/71; PULSE 83; RESP 18; TEMP 36.6; O2SAT 95
[2021-05-27 07:15] LABS: Absolute Neutrophil Count 8.7 X10^3/uL (2.0-7.7); Basophil# 0.04 X10^3/uL; Basophil% 0.4 % (0-1); Eosinophil# 0.13 X10^3/uL; Eosinophils% 1.2 % (0-5); Hematocrit 37.3 % (37-47); Hemoglobin 12.3 g/dL (12.0-15.0); Lymphocyte % 10.8 % (19-41); Mean Corpuscular Hgb 30.1 pg (27.0-32.0); Mean Corpuscular Volume 91.2 fL (81-99); Mean Platelet Vol. 9.4 fl (6.2-12.0); Monocyte# 0.94 X10^3/uL; Monocyte% 8.5 % (0-10); NRBC Flagged by Analyzer 0 % (0-5); Neutrophil # 8.73 X10^3/uL (2.7-7.7); Neutrophil % 78.6 % (47-70); Platelet Count 329 K/mm3 (150-450); RBC Distribution Width CV 12.1 % (11.6-14.6); RBC Distribution Width SD 40.4 fl (35.1-43.9); Red Blood Count 4.09 M/mm3 (4.2-5.4); White Blood Count 11.1 K/mm3 (4.4-11.0)
[2021-05-27 07:30] VITALS: BP 118/78; PULSE 79; RESP 16; TEMP 36.9; O2SAT 98
[2021-05-27 08:40] LABS: ALB/GLOB Ratio 0.7 RATIO (0.9-2.4); AST(SGOT) 13 U/L (15-37); Alanine Aminotransfer ALT/SGPT 15 U/L (13-56); Albumin, Serum 2.5 g/dL (3.2-5.0); Alkaline Phosphatase 55 U/L (45-117); Anion Gap 4 (5-15); BUN 9 mg/dL (7-18); BUN/Creat Ratio 11.3 RATIO (10-20); Calcium,Total 8.9 mg/dL (8.5-10.1); Chloride 104 mmol/L (98-107); EST Glomerular Filtration Rate 88 mL/min (>60); Est Glom Filt Rate - Afr Amer 107 mL/min (>60); Estimated Creatinine Clearance 82.74 ml/min; Globulin 3.8 g/dL (2.2-4.2); Glucose 87 mg/dL (74-106); Magnesium 2.1 mg/dL (1.6-2.6); Phosphorus 2.4 mg/dL (2.5-4.9); Protein, Total 6.3 g/dL (6.4-8.2); Sodium Level 136 mmol/L (136-145)
[2021-05-27] MEDS: Enoxaparin 40 MG/0.4 ML Syringe SC (10:07)
--- NOTE | 2021-05-27 10:52 | CON.PCM.SX_ITS ---
Assessment & Plan Assessment/Plan (1) Diverticulitis: PLAN: At the present time she has significant diverticulitis. But with her white count coming down I think she has a good chance at getting better with IV antibiotics alone. Recommend continuing IV antibiotics until pain is improved significantly prior to her being discharged. She will more likely need to be in the hospital through the weekend. HPI Consult Data Date of Consult: 05/27/21 HPI Narrative HPI Narrative: SY GIBBS, is a 31 F who presents to the emergency department [facility] on 05/26/2021 secondary to increasing abdominal pain. Patient was evaluated in the emergency department 4 days ago where a CT of her abdomen pelvis was performed and noted sigmoid diverticulitis. She was discharged home on oral antibiotics and followed up with general surgery, Dr. Del Real, who examined her yesterday and had her return to the emergency department for reevaluation secondary to subjective fevers, nausea, and vomiting. She states her last emesis was yesterday. The emesis has predominantly consisted of bile. She states that currently her pain is better but was worse with movement and lying flat but relieved by nothing. Repeat CT of her abdomen and pelvis was performed and it appears as if her diverticulitis has actually improved but there is still inflammation of the sigmoid colon. Her leukocytosis has improved and her CBC is otherwise unremarkable. Her CMP is also unremarkable. Qualitative serum test is negative. She was started on IV antibiotics in the emergency department. We will admit to medical surgical floor for continued IV antibiotics. This morning the patient states that her pain is slightly better but she is still having it. She does not feel as rundown as she did yesterday. She is still moving her bowels. [facility] Medical History PCOS (polycystic ovarian syndrome) Home Medications levofloxacin 750 mg PO DAILY #7 tab 05/23/21 [Rx Last Taken Unknown] metronidazole 500 mg PO Q6H #28 tab 05/23/21 [Rx Last Taken Unknown] oxycodone 5 mg PO Q6H PRN 3 Days #12 tab 05/23/21 [Rx Last Taken Unknown] Allergy/AdvReac Type Severity Reaction Status Date / Time No Known Allergies Allergy Verified 05/26/21 13:55 Surgical History History of D&C Social History Smoking Status: Current every day smoker tobacco type: cigarettes ROS Constitutional Constitutional: Reports anorexia, chills, fatigue and fever(s) Cardiovascular Cardiovascular: Denies chest pain Respiratory/Chest Respiratory/Chest: Denies cough or dyspnea Gastrointestinal Gastrointestinal: Reports abdominal pain, nausea and vomiting; Denies coffee ground emesis or constipation Genitourinary Genitourinary: Denies change in urinary stream or difficulty urinating Physical Exam Const alert, oriented x3 and no apparent distress General Appearance: cooperative HEENT normocephalic, head/scalp atraumatic and TM's normal bilaterally Eyes PERRL and EOMs intact bilaterally Neck full ROM Resp clear to auscultation bilaterally Cardio Rate: regular rate Rhythm: regular rhythm GI soft to palpation Palpation: tender LLQ and suprapubic Lab / Micro Data Result Diagrams: 05/27/21 07:05 05/27/21 08:08 Labs: Laboratory Results - last 24 hr 05/26/21 14:12: WBC 14.1 H, RBC 4.61, Hgb 14.0, Hct 41.4, MCV 89.8, MCH 30.4, MCHC 33.8, RDW Std Deviation 39.6, RDW Coeff of Joey 12.1, Plt Count 337, MPV 9.7, Immature Gran % (Auto) 0.400, Neut % (Auto) 85.4 H, Lymph % (Auto) 6.8 L, [place] % (Auto) 6.8, Eos % (Auto) 0.3, Baso % (Auto) 0.3, Absolute Neuts (auto) 12.0 H, Absolute Lymphs (auto) 0.96, Nucleated RBC % 0 05/26/21 14:12: Sodium 135 L, Potassium 3.6, Chloride 101, Carbon Dioxide 26.0, Anion Gap 8, BUN 9, Creatinine 0.90, Estim Creat Clear Calc 73.55, Est GFR (MDRD) Af Amer 93, Est GFR (MDRD) Non-Af 77, BUN/Creatinine Ratio 10.0, Glucose 103, Calcium 9.6, Total Bilirubin 0.60, AST 12 L, ALT 19, Alkaline Phosphatase 68, Total Protein 8.0, Albumin 3.1 L, Globulin 4.9 H, Albumin/Globulin Ratio 0.6 L 05/26/21 14:12: Serum , Qual NEGATIVE 05/26/21 14:40: Lactic Acid 1.0 05/27/21 07:05: WBC 11.1 H, RBC 4.09 L, Hgb 12.3, Hct 37.3, MCV 91.2, MCH 30.1, MCHC 33.0, RDW Std Deviation 40.4, RDW Coeff of Joey 12.1, Plt Count 329, MPV 9.4, Immature Gran % (Auto) 0.500, Neut % (Auto) 78.6 H, Lymph % (Auto) 10.8 L, [place] % (Auto) 8.5, Eos % (Auto) 1.2, Baso % (Auto) 0.4, Absolute Neuts (auto) 8.7 H, Absolute Lymphs (auto) 1.20, Nucleated RBC % 0 05/27/21 08:08: Sodium 136, Potassium 4.0, Chloride 104, Carbon Dioxide 28.0, Anion Gap 4 L, BUN 9, Creatinine 0.80, Estim Creat Clear Calc 82.74, Est GFR (MDRD) Af Amer 107, Est GFR (MDRD) Non-Af 88, BUN/Creatinine Ratio 11.3, Glucose 87, Calcium 8.9, Phosphorus 2.4 L, Magnesium 2.1, Total Bilirubin 0.40, AST 13 L , ALT 15, Alkaline Phosphatase 55, Total Protein 6.3 L, Albumin 2.5 L, Globulin 3.8, Albumin/Globulin Ratio 0.7 L Micro: Microbiology 05/26/21 16:00 Nasal Secretion SARS-CoV-2 Antigen (Rapid) - Final Radiology Impression Abdomen/Pelvis CT 05/26/21 14:26 IMPRESSION: Persistent inflammatory changes surrounding the sigmoid colon in keeping with acute sigmoid diverticulitis. No focal abscess collection is seen at this time. Small amount of free fluid in the cul-de-sac. Electronically Signed: Bladimir Hussein MD at 15:16 EDT , Service support ,
[2021-05-27 13:02] VITALS: BP 120/75; PULSE 76; RESP 16; TEMP 36.8; O2SAT 96
[2021-05-27 16:13] VITALS: BP 115/77; PULSE 88; RESP 12; TEMP 36.8; O2SAT 97
--- NOTE | 2021-05-27 17:27 | PCM.DC ---
Discharge Instructions Diet Discharge Diet: [place] diet Dressing / Incision Call your doctor if you observe: Fever of 101 or Higher and - (worsening abdominal pain) Follow Up Care Test Results: Test results from this visit will be discussed in further detail at your follow-up appointment, if applicable. Discharge Plan Admission Admit Date/Time: 05/26/21 16:47 Primary Reason for Your Visit: diverticulitis Attending Provider: Mono Ritter Primary Care Provider: Care Physician,No Primary Consulting Providers: Sanchez Mcdowell Discharge Orders/Prescriptions Prescriptions: New amoxicillin-pot clavulanate [Augmentin] 875-125 mg tablet 1 tab PO BID Qty: 14 RF: 0 Continued oxycodone 5 mg tablet 5 mg PO Q6H PRN (Reason: pain (scale score 7-10)) 3 Days Qty: 12 RF: 0 Discontinued levofloxacin 750 mg tablet 750 mg PO DAILY Qty: 7 RF: 0 metronidazole 500 mg tablet 500 mg PO Q6H Qty: 28 RF: 0 Referrals / Follow Up: Care Physician,No Primary [Primary Care Provider] - Disposition Disposition (needs filled in before D/C Order can be placed): Home, Self Care
--- NOTE | 2021-05-27 17:33 | PCM.DC.SUM ---
Providers Date of Admission: 05/26/21 Primary Care Physician: Carmen Primary Care Phys Consultations 05/26/21 18:57 Consult: General Surgery Routine Consulting Provider: Sanchez Mcdowell Reason for Consult: Acute Diverticulitis EMERGENT Consult: No MD Notified: Yes Date Notified: 05/27/21 Time Notified: 07:40 Method of Notification: Verbal Reason For Visit: ACUTE DIVERTICULITIS Diagnosis Discharge Diagnosis (1) Diverticulitis: Status: Acute Code(s): K57.92 - Diverticulitis of intestine, part unspecified, without perforation or abscess without bleeding Medications at Discharge Home Medications amoxicillin-pot clavulanate [Augmentin] 1 tab PO BID #14 tab 05/27/21 oxycodone 5 mg PO Q6H PRN 3 Days #12 tab 05/27/21 Hospital Course Operations None Procedures None Summary of Care Provided Minutes Spent on Discharge: 32 Hospital Course: Patient presents with intractable nausea and vomiting and abdominal pain. Patient a CAT scan showed resolution of the fluid collection and patient's white count was trending down. Patient was afebrile. Patient was changed over to piperacillin/tazobactam and has improved. Patient still does have abdominal pain which is to be expected given the amount of colitis that she has. Patient was advanced to full diet as tolerated that and she not having further nausea vomiting. Is suspected that patient had adverse reaction with likely metronidazole, however, patient was on levofloxacin as well. So cannot definitively rule out 1 or the other being the definitive etiology of her nausea and vomiting. Supposed to be added to her allergy list. Patient told again of the risk of perforation though would be unlikely as she is continue to improve. Physical Exam Const alert General Appearance: cooperative and comfortable Resp normal respiratory effort, no retractions and no use of accessory muscles Cardio regular rate, regular rhythm, S1 normal heart sound and S2 normal heart sound GI normal to inspection, nondistended, normoactive bowel sounds Neuro Sensorium / Orientation: awake and alert Weight / BMI Weight Weight: 73.4 kg Body Mass Index (BMI) 28.6 ABG / Lab / Microbiology Data Result Diagrams: 05/27/21 07:05 05/27/21 08:08 Laboratory: Laboratory Results - last 24 hr 05/27/21 07:05: WBC 11.1 H, RBC 4.09 L, Hgb 12.3, Hct 37.3, MCV 91.2, MCH 30.1, MCHC 33.0, RDW Std Deviation 40.4, RDW Coeff of Joey 12.1, Plt Count 329, MPV 9.4, Immature Gran % (Auto) 0.500, Neut % (Auto) 78.6 H, Lymph % (Auto) 10.8 L, [place] % (Auto) 8.5, Eos % (Auto) 1.2, Baso % (Auto) 0.4, Absolute Neuts (auto) 8.7 H, Absolute Lymphs (auto) 1.20, Nucleated RBC % 0 05/27/21 08:08: Sodium 136, Potassium 4.0, Chloride 104, Carbon Dioxide 28.0, Anion Gap 4 L, BUN 9, Creatinine 0.80, Estim Creat Clear Calc 82.74, Est GFR (MDRD) Af Amer 107, Est GFR (MDRD) Non-Af 88, BUN/Creatinine Ratio 11.3, Glucose 87, Calcium 8.9, Phosphorus 2.4 L, Magnesium 2.1, Total Bilirubin 0.40, AST 13 L, ALT 15, Alkaline Phosphatase 55, Total Protein 6.3 L, Albumin 2.5 L, Globulin 3.8, Albumin/Globulin Ratio 0.7 L Microbiology: Microbiology 05/26/21 16:00 Nasal Secretion SARS-CoV-2 Antigen (Rapid) - Final D/C Instructions Discharge Diet: [place] diet Call your doctor if you observe: Fever of 101 or Higher and - (worsening abdominal pain) Meaningful Use Info Meaningful Use Diagnoses (Choose all that apply): None applicable Discharge Plan Admission Admit Date/Time: 05/26/21 16:47 Primary Reason for Your Visit: diverticulitis Attending Provider: oMno Ritter Primary Care Provider: Care Physician,No Primary Consulting Providers: Sanchez Mcdowell Discharge Orders/Prescriptions Prescriptions: New amoxicillin-pot clavulanate [Augmentin] 875-125 mg tablet 1 tab PO BID Qty: 14 RF: 0 Continued oxycodone 5 mg tablet 5 mg PO Q6H PRN (Reason: pain (scale score 7-10)) 3 Days Qty: 12 RF: 0 Discontinued levofloxacin 750 mg tablet 750 mg PO DAILY Qty: 7 RF: 0 metronidazole 500 mg tablet 500 mg PO Q6H Qty: 28 RF: 0 Referrals / Follow Up: Care Physician,No Primary [Primary Care Provider] - Disposition Disposition (needs filled in before D/C Order can be placed): Home, Self Care Charges/Coding Visit Charges OBSV E&M: 04440 Observation care discharge
== END 2021-05-27 17:43 | disposition home or self-care (01) ==
LOC: ED 14:36 → PCU 05-27 06:49
PROVIDERS: Admitting Provider Internal Medicine; Emergency Provider Emergency Medicine
DX: K57.92 Diverticulitis of intestine, part unspecified, without perforation or abscess without bleeding (principal); E28.2 Polycystic ovarian syndrome; Z79.899 Other long term (current) drug therapy; F17.210 Nicotine dependence, cigarettes, uncomplicated
CPT/HCPCS: 36415; 74177; 80053; 83605; 83735; 84100; 84703; 85025; 87426; 96361; 96365; 96366; 96372; 96375; 96376; 97802; 99218; 99251; 99284; 99406; J7030; Q9967; A4216; G0378; G0463; J2405

== ENCOUNTER 2021-06-19 10:19 | Day surgery (SDC) | payer MEDICAID, SELFPAY ==
[2021-06-19 10:51] VITALS: BP 112/71; PULSE 95; RESP 16; TEMP 36.4; O2SAT 97; BMI 37.4
[2021-06-19 10:56] LABS: Internal QC Validated? YES +Cl - CLEAR BKGD; Pregnancy, Urine Negative Negative
[2021-06-19] MEDS: Lactated Ringers 1,000 ML 100 ML IV (11:03)
--- NOTE | 2021-06-19 11:30 | COLBX_PTH ---
PATIENT: SY GIBBS LOC: EN U#:[id number] AGE/SX: 31/F ROOM: RE06/19/[address]: Dr. Brian Cruz DO : 1990 BED: DIS: 06/19/2021 SPEC #: [id number] RECD: 06/19/21 13:15 STATUS: WINSOME RECheri #: [id number] EDEL: 06/19/21 11:[address]: Brian Cruz DEPT: SURGICAL PATHOLOGY RECD BY: Traci West ENTERED: 06/19/21 13:39 SP TYPE: COLON BX OTHR DR: No Primary Care Phys Tissues: Ileum, NOS Procedures: Surgery Specimen Level IV HEADER OPERATION: Colonoscopy (MAC) PRE-OP DIAGNOSIS: Diverticulitis TISSUE SUBMITTED: Biopsy of terminal ileum MICROSCOPIC DIAGNOSIS Terminal ileum, biopsy: Fragments of small intestinal mucosa, no pathologic diagnosis. GLORIA:jose 06/20/2021 MICROSCOPIC DESCRIPTION Slides are reviewed. GROSS DESCRIPTION Received in fixative is one container labeled with the patient's name and designated biopsy of terminal ileum. The specimen consists of two irregular fragments of light do soft tissue that in aggregate measure 0.5 x 0.5 x 0.1 cm. The specimen is totally submitted in one cassette. / SJ:rg 06/19/21 TC:4 CPT: 68404
--- NOTE | 2021-06-19 11:44 | HP.PCM_ITS ---
History and Physical Date of Admission: 06/19/21 Chief Complaint: DIVERTICULITIS Details: SY GIBBS, is a 31 F who presents to the office today for the evaluation of recent diverticulitis. 05/16 she began feeling ill with abd pain, menstrual bleeding with clots [facility] suggested ED r/t possible miscarriage. US performed of abdomen with normal results. [place] gilmar for a couple weeks and returned to ED - CT performed with Dx of Diverticulosis. Prescribed two medications and was allergic to them. She presented to the emergency department [facility] on 05/26/2021 secondary to increasing abdominal pain. Patient was evaluated in the emergency department 4 days ago where a CT of her abdomen pelvis was performed a nd noted sigmoid diverticulitis. She was discharged home on oral antibiotics and followed up with general surgery, Dr. Del Real, who examined her yesterday and had her return to the emergency department for reevaluation secondary to subjective fevers, nausea, and vomiting. She states her last emesis was yesterday. The emesis has predominantly consisted of bile. She states that currently her pain is better but was worse with movement and lying flat but relieved by nothing. Her repeat CT of her abdomen and pelvis was performed and it appears as if her diverticulitis has actually improved but there is still inflammation of the sigmoid colon. Her leukocytosis has improved and her CBC is otherwise unremarkable. Her CMP is also unremarkable. Qualitative serum test is negative. She was started on IV antibiotics in the emergency department. She is now a month out from her acute diverticulitis. She has been avoiding all fiber-containing foods and is back to work but has been on a lifting restriction of 20 pounds.. ROS Const Constitutional: Positive for headache(s) and weight change (Loss) ENT ENT: Positive for headache(s) Gastro GI: Positive for abdominal pain, bloating, change in bowel habits, diarrhea, heartburn and nausea/dyspepsia Neuro Neurology: Positive for headache(s) Psych Psychiatric: Positive for anxiety Exam Const General: cooperative and comfortable Nutritional Appearance: average body habitus and well nourished [facility] Head: normal to inspection Ears: hearing grossly normal bilaterally Nose: external nose normal Face and sinus: normal facial exam Mouth: oral mucosae normal Throat: posterior oropharynx normal Eyes General: appearance normal, both eyes and all related structures Neck Neck: normal visual inspection Chest Chest palpation & inspection: normal inspection of the chest and normal palpation of entire chest wall Resp Effort & Inspection: normal respiratory effort Auscultation: Bilateral: Clear to Auscultation Cardio Palpation: normal PMI Rate: regular rate Rhythm: regular rhythm GI Inspection: normal to inspection Auscultation: normal bowel sounds Percussion: normal to percussion Palpation: no hepatosplenomegaly Skin General: no rashes or lesions noted Neuro General: patient alert Extrem General: normal to inspection Psych Affect: normal affect Quality Reporting Tobacco Screening ([facility] 138) Smoking Status: Current every day smoker Assessment and Plan Assessment and Plan (1) Diverticulitis: Status: Acute Plan - Dr. Torres Friend, DO: She was given literature on segmental colitis associated with diverticulitis in young females. The literature states that this disease behaves similar to Crohn's disease and is treated accordingly. She will undergo colonoscopy so we can evaluate the colon endoscopically and with biopsies. We will also evaluate the terminal ileum. We will repeat her ESR, CRP. After she undergoes colonoscopy we will move forward would be able to make recommendations regarding future therapy. Thank you very much for allowing me to participate in care of this patient. Plan Details Other Medications: New: bisacodyl 5 mg PO ONCE 4 tabs 0RF polyethylene glycol 3350 (Miralax) 17 grams PO DAILY 238 grams 0RF
[2021-06-19 12:12] VITALS: BP 112/71; BP 92/61; PULSE 64; RESP 16; TEMP 36.4; O2SAT 97
--- NOTE | 2021-06-19 12:13 | OP.COLON_ITS ---
Patient Name: Silvana Marmolejo Procedure Date: 06/19/2021 11:48 AM Date of : 1990 Age: 31 Procedure: Colonoscopy Indications: Diverticulitis Providers: Brian Cruz DO Medicines: Propofol per Anesthesia Patient Profile: This is a 31 year old female. Refer to note in patient chart for documentation of history and physical. Last Colonoscopy: none. The patient's first colonoscopy is today. Complications: No immediate complications. Procedure: Pre-Anesthesia Assessment: - Prior to the procedure, a History and Physical was performed, and patient medications and allergies were reviewed. The patient is competent. The risks and benefits of the procedure and the sedation options and risks were discussed with the patient. All questions were answered and informed consent was obtained. Patient identification and proposed procedure were verified by the physician in the pre-procedure area. Mental Status Examination: alert and oriented. Airway Examination: normal oropharyngeal airway and neck mobility. Respiratory Examination: clear to auscultation. CV Examination: normal. Prophylactic Antibiotics: The patient does not require prophylactic antibiotics. Prior Anticoagulants: The patient has taken no previous anticoagulant or antiplatelet agents. ASA Grade Assessment: II - A patient with mild systemic disease. After reviewing the risks and benefits, the patient was deemed in satisfactory condition to undergo the procedure. The anesthesia plan was to use moderate sedation / analgesia (conscious sedation). Immediately prior to administration of medications, the patient was re-assessed for adequacy to receive sedatives. The heart rate, respiratory rate, oxygen saturations, blood pressure, adequacy of pulmonary ventilation, and response to care were monitored throughout the procedure. The physical status of the patient was re-assessed after the procedure. After I obtained informed consent, the scope was passed under direct vision. Throughout the procedure, the patient's blood pressure, pulse, and oxygen saturations were monitored continuously. The colonoscope was introduced through the anus and advanced to the cecum, identified by appendiceal orifice and ileocecal valve. The colonoscopy was performed without difficulty. The patient tolerated the procedure well. The quality of the bowel preparation was good. Moderate Sedation: Moderate (conscious) sedation was administered by the endoscopy nurse and supervised by the endoscopist. The following parameters were monitored: oxygen saturation, heart rate, blood pressure, and response to care. Total physician intraservice time was 15 minutes. Scope In: 11:56:32 AM Scope Withdrawal Time 0 hours 6 minutes 4 seconds Scope Out: 12:07:21 PM Total Procedure Duration Time 0 hours 10 minutes 49 seconds Findings: The perianal and digital rectal examinations were normal. The perianal and digital rectal examinations were normal. Multiple medium-mouthed diverticula were found in the sigmoid colon, descending colon, splenic flexure and transverse colon. There was no evidence of diverticular bleeding. A localized area of the terminal ileum was congested. This was biopsied with a cold large-capacity forceps for histology. Verification of patient identification for the specimen was done. Estimated blood loss was minimal. Impression: - Diverticulosis in the sigmoid colon, in the descending colon, at the splenic flexure and in the transverse colon. There was no evidence of diverticular bleeding. - Congested mucosa in the terminal ileum. Biopsied. Recommendation: - Discharge patient to home. - Resume previous diet. - Continue present medications. - Await pathology results. - Repeat colonoscopy in 5 years for surveillance based on pathology results. - Return to GI office in 2 weeks. Procedure Code(s): --- Professional --- 69699, Colonoscopy, flexible; with biopsy, single or multiple G0500, Moderate sedation services provided by the same physician or other qualified health care management coordinator performing a gastrointestinal endoscopic service that sedation supports, requiring the presence of an independent trained observer to assist in the monitoring of the patient's level of consciousness and physiological status; initial 15 minutes of intra-service time; patient age 5 years or older (additional time may be reported with 99318, as appropriate) CPT copyright 2017 [employer]. All rights reserved. The codes documented in this report are preliminary and upon indirect sales exec review may be revised to meet current compliance requirements. Brian Cruz DO 06/19/2021 12:12:26 PM This report has been signed electronically. Number of Addenda: 1 Note Initiated On: 06/19/2021 11:48 AM Addendum Number: 1 Addendum Date: 05/10/2022 4:30:47 PM MAC was used instead of moderate sedation for this patient. Brian Cruz DO 05/10/2022 4:30:56 PM This report has been signed electronically.
--- NOTE | 2021-06-19 12:13 | OP.CCLET_ITS ---
05/10/2022 No Primary Care Physician Re : Colonoscopy procedure for Silvana Marmolejo Dear Care Physician This procedure was performed on Saturday, June 19, 2021. My impressions and recommendations are as follows: Impressions : - Diverticulosis in the sigmoid colon, in the descending colon, at the splenic flexure and in the transverse colon. There was no evidence of diverticular bleeding. - Congested mucosa in the terminal ileum. Biopsied. Recommendations : - Discharge patient to home. - Resume previous diet. - Continue present medications. - Await pathology results. - Repeat colonoscopy in 5 years for surveillance based on pathology results. - Return to GI office in 2 weeks. My findings are described in the full procedure note, which is enclosed. If I can be of further assistance, please feel free to contact me at . Sincerely, Brian Cruz, 06/19/2021 12:12:26 PM This report has been signed electronically.
[2021-06-19 12:16] VITALS: BP 112/71; BP 99/62; PULSE 61; RESP 16; O2SAT 99
[2021-06-19 12:20] VITALS: BP 105/63; BP 112/71; PULSE 59; RESP 16; O2SAT 99
[2021-06-19 12:25] VITALS: BP 101/62; BP 112/71; PULSE 60; RESP 16; TEMP 36.2; O2SAT 98
[2021-06-19 13:12] VITALS: BP 112/71
== END 2021-06-19 13:13 | disposition home or self-care (01) ==
LOC: EN 10:20 → ACINP 10:31 → AC 10:45
PROVIDERS: Anesthesiology; Referring Provider Internal Medicine Gastroenterology; Visit Provider Internal Medicine Gastroenterology
PROC: 0DJD8ZZ Inspection of Lower Intestinal Tract, Via Natural or Artificial Opening Endoscopic (ICD-10-PCS; CPT 45378; principal; 2021-06-19 11:25)
DX: K57.32 Diverticulitis of large intestine without perforation or abscess without bleeding (principal); K63.89 Other specified diseases of intestine; F17.200 Nicotine dependence, unspecified, uncomplicated; K21.9 Gastro-esophageal reflux disease without esophagitis; M19.90 Unspecified osteoarthritis, unspecified site; G47.30 Sleep apnea, unspecified
CPT/HCPCS: 45380; 81025; 87426; 88305; C9803; J7120; J2405

== ENCOUNTER → 2021-08-17 14:52 | Outpatient (CLI) | payer MEDICAID, SELFPAY ==
[2021-08-17 17:00] LABS: Vitamin D,25 Hydroxy 13.9 ng/mL
[2021-08-17 17:59] LABS: ALB/GLOB Ratio 1.3 RATIO (0.9-2.4); AST(SGOT) 21 U/L (15-37); Alanine Aminotransfer ALT/SGPT 34 U/L (13-56); Albumin, Serum 4.3 g/dL (3.2-5.0); Alkaline Phosphatase 61 U/L (45-117); Anion Gap 7 (5-15); BUN 10 mg/dL (7-18); BUN/Creat Ratio 13.1 RATIO (10-20); Calcium,Total 9.5 mg/dL (8.5-10.1); Chloride 105 mmol/L (98-107); Cholesterol 168 mg/dL (200); Creatinine, Serum 0.76 mg/dL (0.55-1.02); EST Glomerular Filtration Rate 92 mL/min (>60); Est Glom Filt Rate - Afr Amer 112 mL/min (>60); Follicle Stimulating Hormone 3.8 mIU/mL; Globulin 3.3 g/dL (2.2-4.2); Glucose 87 mg/dL (74-106); High Density Lipoprotein 47 mg/dL; Potassium 4.1 mmol/L (3.5-5.1); Protein, Total 7.6 g/dL (6.4-8.2); Sodium Level 140 mmol/L (136-145); T4 Free Direct 1.03 ng/dL (0.76-1.46); Thyroid Stim Hormone (TSH) 0.74 uIU/mL (0.358-3.74); Triglycerides 186 mg/dL; Very Low Density Lipoprotein 37 mg/dL (5-40)
[2021-08-24 12:09] LABS: Testosterone, % Free 3.53 % (0.50-2.80); Testosterone, Free 1.77 ng/dL (0.10-0.85); Testosterone, Total 50 ng/dL (8-60)
[2021-08-27 13:10] LABS: 17-Hydroxyprogesterone 123 ng/dL (.)
== END ==
PROVIDERS: Referring Provider Internal Medicine Endocrinology, Diabetes & Metabolism; Visit Provider Internal Medicine Endocrinology, Diabetes & Metabolism
DX: E55.9 Vitamin D deficiency, unspecified (principal); E28.2 Polycystic ovarian syndrome
CPT/HCPCS: 36415; 80053; 80061; 82306; 82627; 83001; 83002; 83498; 84146; 84402; 84403; 84439; 84443; 82626

== ENCOUNTER → 2023-02-26 | Outpatient (CLI) | payer MEDICAID, SELFPAY ==
[2023-02-26 13:39] LABS: Absolute Lymphocyte Count 1.89 X10^3/uL (0.83-4.51); Absolute Neutrophil Count 4.7 X10^3/uL (2.0-7.7); Basophil# 0.05 X10^3/uL; Basophil% 0.7 % (0-1); Eosinophil# 0.15 X10^3/uL; Hemoglobin 15.1 g/dL (12.0-15.0); Lymphocyte # 1.89 X10^3/ul (0.83-4.51); Lymphocyte % 25.5 % (19-41); Mean Corp Hgb Conc 33.6 g/dL (32-36); Mean Corpuscular Hgb 30.6 pg (27.0-32.0); Mean Corpuscular Volume 91.1 fL (81-99); Mean Platelet Vol. 10.5 fl (6.2-12.0); Monocyte# 0.64 X10^3/uL; Monocyte% 8.6 % (0-10); NRBC Flagged by Analyzer 0 % (0-5); Neutrophil # 4.65 X10^3/uL (2.7-7.7); Neutrophil % 62.8 % (47-70); Platelet Count 243 K/mm3 (150-450); RBC Distribution Width CV 13.3 % (11.6-14.6); RBC Distribution Width SD 44.6 fl (35.1-43.9); Red Blood Count 4.94 M/mm3 (4.2-5.4); White Blood Count 7.4 K/mm3 (4.4-11.0)
[2023-02-26 13:48] LABS: Ferritin 38 ng/mL (8-252)
[2023-02-26 13:50] LABS: Vitamin B12 448 pg/mL (211-911)
== END | disposition home or self-care (01) ==
LOC: MFPLAB 10:06
PROVIDERS: Visit Provider Family Medicine
DX: G25.81 Restless legs syndrome (principal)
CPT/HCPCS: 36415; 82607; 82728; 85025

== ENCOUNTER 2023-04-27 13:51 | Emergency (ER) | payer MEDICAID, SELFPAY ==
[2023-04-27 13:52] VITALS: BP 150/93; PULSE 84; RESP 18; TEMP 36; O2SAT 100; BMI 32.8
--- NOTE | 2023-04-27 14:07 | EDS_ITS ---
HPI History of Present Illness Chief Complaint: Dental Informant: patient Narrative Narrative: Patient presents with right-sided dental pain. She states she broke a tooth off months and months ago. It just started hurting . Today she woke up and she notes he has a little bit of swelling and redness by the right jaw. No trouble breathing. She states it hurts a little bit to swallow but she can eat and drink fine. No fevers or chills. No nausea vomiting. No change in voice. No pain with motion of the neck. PFSH PFSH Medical History Anxiety Arthritis CPAP (continuous positive airway pressure) dependence Diverticulitis Gastric reflux Obesity PCOS (polycystic ovarian syndrome) PCOS (polycystic ovarian syndrome) Sleep apnea Smoker Home Medications escitalopram oxalate 10 mg tablet 10 mg PO DAILY 04/30/22 [History Last Taken Unknown] bupropion HCl 150 mg 24 hr tablet, extended release 150 mg PO DAILY 04/27/23 [History Last Taken Unknown] gabapentin 100 mg capsule 400 mg PO QHS 04/27/23 [History Last Taken Unknown] penicillin V potassium 500 mg tablet 500 mg PO 4X/DAY #40 tabs 04/27/23 [Rx Last Taken Unknown] Allergy/AdvReac Type Severity Reaction Status Date / Time metronidazole AdvReac Intermediate Nausea/Vom/ Verified 11/05/22 08:49 Diarrhea levofloxacin [From Levaquin] AdvReac Nausea Verified 11/05/22 08:49 Surgical History History of D&C History of tonsillectomy and adenoidectomy Hx of surgical procedure Social History Smoking Status: Current every day smoker tobacco type: cigarettes ROS ROS ED Constitutional Constitutional ED: Denies chills, fever(s), subjective or sweats Eyes Eyes: Denies change in vision ENT ENT ED: Reports other Details: See history of present illness. ; Denies ear pain, rhinorrhea or sore throat Cardiovascular Cardiovascular: Denies chest pain or palpitations Respiratory/Chest Respiratory/Chest: Denies cough or dyspnea Gastrointestinal Gastrointestinal: Denies nausea or vomiting Musculoskeletal Musculoskeletal: Denies neck pain Integumentary Reports other Details: Mild redness to the lateral right jaw. Neurologic Neurologic: Denies weakness Endocrine Endocrinology: Denies polydipsia or polyuria Hematologic/Lymphatic Hematologic/Lymphatic: Denies lymphadenopathy Allergic/Immunologic Allergic/Immunologic ED: Denies tongue swelling EXAM Physical Exam Narrative Exam Narrative: Patient awake alert sitting comfortably in bed. No acute distress. She carries on normal conversation. HEENT shows a little bit of swelling over the right mandibular area with a little bit of erythema there. Its not fluctuant. Not woody. There is no indication of wood Ludewig's angina. Inside the mouth shows some dental tenderness. But no swelling or firmness in the floor of the mouth or tongue. No posterior pharyngeal swelling. She has had prior tonsillectomy. Again, no indication of Char's. Neck shows no swelling down onto the neck area. No stridor or listing over the anterior neck. No tenderness. No lymphadenopathy. Lungs are clear bilaterally. Heart is regular. No murmur. Abdomen soft nontender Extremities show no erythema or tenderness. No swelling. Const Vital Signs: 04/27/23 13:52 04/27/23 14:01 Temperature 96.8 F L Temperature Source Temporal Pulse Rate 84 Respiratory Rate 18 Respiratory Pattern Normal Blood Pressure 150/93 H Blood Pressure Mean 112 Pulse Ox 100 Oxygen Delivery Method Room Air MDM MDM MDM Narrative Medical decision making narrative: Patient does appear to have dental abscess. This is not to the point where we have to do a scan of her neck or mouth. But I did talk to the patient about this. We discussed symptoms that would prompt a return. I think she should do well on antibiotics. [facility] will [facility] at [facility]. We verified that they are open for another 4 hours. I explained that she needs to get these filled today but I will give her a dose here. If she has trouble filling them, she should return and we will fill them here or at another center as I do not want her to go the weekend without antibiotics. Discharge Plan Triage Chief Complaint: Dental Other Complaint: Edema ED Provider: César Thornton Dx/Rx/DC Orders Clinical Impression: Abscess, dental Instructions: ED Dental Abscess Facial Cellulitis Prescriptions: New penicillin V potassium 500 mg tablet 500 mg PO 4X/DAY Qty: 40 0RF No Action escitalopram oxalate 10 mg tablet 10 mg PO DAILY Patient Comments: take 1 tablet by mouth once daily gabapentin 100 mg capsule 400 mg PO QHS Patient Comments: take 1-2 capsules by mouth at bedtime bupropion HCl 150 mg tablet extended release 24 hr 150 mg PO DAILY Patient Comments: take 1 tablet by mouth once daily Primary Care Provider: Angela Hansen Referrals: Anamaria Hawkins MD [Med Staff - [facility]] - 3-5 Days if not improving Care Physician,No Primary [Non-Staff] - Activity Restrictions/Additional Instructions: See dental referral resource sheet for follow-up options Disposition Disposition: Home, Self Care
[2023-04-27] MEDS: Penicillin Vk 250 MG Tablet 500 MG PO (14:15)
== END 2023-04-27 14:18 | disposition home or self-care (01) ==
LOC: ED 14:13
PROVIDERS: Emergency Provider Emergency Medicine; PCP Family Medicine; Visit Provider Emergency Medicine
DX: K04.7 Periapical abscess without sinus (principal); F17.210 Nicotine dependence, cigarettes, uncomplicated; R60.9 Edema, unspecified; Z79.899 Other long term (current) drug therapy
CPT/HCPCS: 99283

== ENCOUNTER 2023-04-29 15:11 | Emergency (ER) | payer MEDICAID, SELFPAY ==
[2023-04-29 15:13] VITALS: BP 138/81; PULSE 91; RESP 18; TEMP 36.6; O2SAT 100; BMI 33.0
--- NOTE | 2023-04-29 16:13 | ED.VIS.DENTA ---
HPI History of Present Illness Chief Complaint: Dental PFSH PFSH Medical History Anxiety Arthritis CPAP (continuous positive airway pressure) dependence Diverticulitis Gastric reflux Obesity PCOS (polycystic ovarian syndrome) PCOS (polycystic ovarian syndrome) Sleep apnea Smoker Home Medications escitalopram oxalate 10 mg tablet 10 mg PO QHS 04/30/22 [History Last Taken 04/28/23 22:00] bupropion HCl 150 mg 24 hr tablet, extended release 150 mg PO DAILY 04/27/23 [History Last Taken 04/29/23 07:30] gabapentin 100 mg capsule 400 mg PO QHS 04/27/23 [History Last Taken 04/28/23 22:00] clindamycin HCl 300 mg capsule 300 mg PO Q8H 10 days #30 caps 04/29/23 [Rx Last Taken Unknown] Allergy/AdvReac Type Severity Reaction Status Date / Time metronidazole AdvReac Intermediate Nausea/Vom/ Verified 04/29/23 15:13 Diarrhea penicillin G AdvReac Mild Rash Verified 04/29/23 16:29 levofloxacin [From Levaquin] AdvReac Nausea Verified 04/29/23 15:13 Surgical History History of D&C History of tonsillectomy and adenoidectomy Hx of surgical procedure Social History Smoking Status: Former smoker EXAM Physical Exam Const Vital Signs: 04/29/23 15:13 04/29/23 19:06 Temperature 98 F 97.4 F L Temperature Source Temporal Temporal Pulse Rate 91 70 Respiratory Rate 18 16 Blood Pressure 138/81 H 109/62 Blood Pressure Mean 100 77 Pulse Ox 100 100 Oxygen Delivery Method Room Air Room Air [facility] MDM Narrative Medical decision making narrative: HISTORY OF PRESENT ILLNESS: 33-year-old female here with dental/tooth pain. She states she was seen several days ago was given penicillin. States symptoms have not improved. States has a rash on her chest at this point. REVIEW OF SYSTEMS: Pertinent positives: Dental pain, rash Pertinent negatives: Shortness of breath, stridor PHYSICAL EXAM: Nursing triage notes reviewed, Vital signs reviewed Constitutional: please see mdm HENT: MMM, poor dentition, no obvious palpable dental abscess, there is submandibular swelling and pain. There is no tonsillar erythema or edema Eyes: Pupils equal round and reactive to light, Extraocular muscles intact Neck: No stridor, no JVD, full neck ROM Lungs: Clear to auscultation, No wheezing or rales. No increased work of breathing, no conversational dyspnea, no accessory muscle use, no nasal flaring. No respiratory distress noted Heart: Regular rate and rhythm, No murmurs, No rubs and No gallops, 2+ distal pulses (radial, femoral, posterior tibial) in all extremities Abdomen: Soft, there is no tenderness, rigidity, rebound or guarding, no obvious peritoneal signs, no palpable pulsatile abdominal masses, no auscultated abdominal bruit : No CVAT Extremities: No edema Neuro: No focal neurological deficits, cranial nerves II through XII intact, 5/5 strength in all extremities. Intact sensation to light touch in all extremities, 2+ reflexes bilateral patella tendons. Normal gait. No ataxia. Skin: Erythema that is blanchable noted to the chest no obvious urticaria, no cyanosis MEDICAL DECISION MAKING: Chief Complaint: Dental pain External records reviewed: Prior ED record reviewed: Seen on 04/27/2023 for dental abscess. No abscess drainage was attempted at this time. Factors affecting care: Anxiety, PCOS ALL IMAGES (IF OBTAINED) HAVE BEEN PERSONALLY REVIEWED AND INTERPRETED BY MYSELF. MDM Narrative: Patient was hemodynamically stable, afebrile, nontoxic-appearing. Exam with concern for submandibular edema I considered the following differential diagnosis: Dental abscess, Ludewig's angina, RPA, ROAD BUILDER I obtained a CT scan rule out Ludewig's angina or other deep neck space infection. Gave IV antibiotics, anti-inflammatories. 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 Did consult OMFS from [facility]. Dr. Zamudio. He notes some bony abnormalities with dental infections or dental abscesses are common. States there is no change in management and does not recommend acute surgery at this time. Recommends warm compresses, antibiotics. States patient can follow-up with her primary dentist for further evaluation. Patient was discharged with clindamycin and strict return precautions. The patient and/or family, caregivers express understanding. The patient and/or family, caregivers agrees with the plan. Shared decision making: I will have a discussion with the patient and or visitors regarding risk/benefits of further testing or admission. They will be made aware of of the risk/benefits inherent in this decision they will be given the opportunity to voice understanding. Total critical care time today provided was at least 0 minutes. This excludes separately billable procedures. Critical care time (if documented) is secondary to the patient having high probability of clinically significant/life threatening deterioration in the patient's condition which required my urgent intervention. Lab Data Attestation: I reviewed the patient's lab results. Lab results narrative: CBC without leukocytosis, severe anemia, no thrombocytopenia. BMP without evidence of significant electrolyte abnormalities, no anion gap, no acute kidney injury. Labs: Laboratory Results - last 24 hr 04/29/23 16:24 WBC 9.6 RBC 4.52 Hgb 13.6 Hct 42.0 MCV 92.9 MCH 30.1 MCHC 32.4 RDW Std Deviation 44.0 H RDW Coeff of Joey 12.8 Plt Count 248 MPV 10.3 Immature Gran % (Auto) 0.400 Neut % (Auto) 65.1 Lymph % (Auto) 23.7 Alcorn % (Auto) 8.0 Eos % (Auto) 2.4 Baso % (Auto) 0.4 Absolute Neuts (auto) 6.3 Absolute Lymphs (auto) 2.28 Nucleated RBC % 0 Sodium 137 Potassium 4.2 Chloride 106 Carbon Dioxide 28.0 Anion Gap 3 L BUN 13 Creatinine 0.88 Estim Creat Clear Calc 77.05 Est GFR (MDRD) Af Amer 95 Est GFR (MDRD) Non-Af 78 BUN/Creatinine Ratio 14.8 Glucose 84 Calcium 9.5 Radiography Diagnostic Testing: Clinical Impression(s) from Imaging Studies Soft Tissue Neck CT 04/29/23 16:27 IMPRESSION: Fluid collection at the right floor the mouth adjacent to the mandible with possible abscess. Lucency of the mandible adjacent to the root of tooth with suggestion of osteomyelitis. Enlarged submandibular lymph nodes. Electronically Signed: Deng Adams MD at 18:37 EDT , ADDENDUM: 04/29/23 8917 IMPRESSION: Fluid collection at the right floor the mouth adjacent to the mandible with possible abscess. Lucency of the mandible adjacent to the root of tooth with suggestion of osteomyelitis. Enlarged submandibular lymph nodes. N.B. : Dannielle Unkefer, RN, confirmed on 04/29/2023 18:49:15 (ET) that the healthcare facility has received the radiology report. Electronically Signed: Deng Adams MD at 18:37 EDT , Discharge Plan Triage Chief Complaint: Dental ED Provider: Bay Pandya Dx/Rx/DC Orders Clinical Impression: Abscess, dental Instructions: Dental Abscess Prescriptions: New clindamycin HCl 300 mg capsule 300 mg PO Q8H 10 Days Qty: 30 0RF No Action escitalopram oxalate 10 mg tablet 10 mg PO QHS Patient Comments: take 1 tablet by mouth once daily gabapentin 100 mg capsule 400 mg PO QHS Patient Comments: take 1-2 capsules by mouth at bedtime bupropion HCl 150 mg tablet extended release 24 hr 150 mg PO DAILY Patient Comments: take 1 tablet by mouth once daily Primary Care Provider: Anegla Hansen Referrals: Angela Hansen, DO [Primary Care Provider] - Activity Restrictions/Additional Instructions: Thank you for trusting us with your care today! Please take Tylenol (2 pills, 650 mg), ibuprofen (2 pills, 400 mg) every 6 hours as needed for pain and fever control. Please take antibiotics until course is complete. Please return to the emergency department if your symptoms change or worsen. Please follow with your dentist for further outpatient evaluation and management. Disposition Disposition: Home, Self Care
--- NOTE | 2023-04-29 16:27 | CT_ITS ---
ACR Level 3 findings have been noted. An addendum which confirms receipt of the report will follow. STUDY: CT SOFT TISSUE NECK WITH CONTRAST REASON FOR EXAM: Female, 33 years old. Submandibular edema concern for Dipak''s RADIATION DOSAGE (If Supplied By Facility): CTDIvol = ( 15.72 ) mGy, DLP = ( 455.52 ) mGycm TECHNIQUE: The patient was scanned in a multi-detector CT scanner. High resolution transaxial imaging was performed following intravenous administration of IV 75mL Isovue-300. Sagittal and coronal images were reconstructed. Individualized dose optimization techniques were used for this CT. COMPARISON: None. FINDINGS: Normal bilateral parotid glands. Normal bilateral brake repairer hydraulic spaces. Normal bilateral parapharyngeal spaces. Normal bilateral carotid spaces. Normal bilateral sublingual and submandibular glands and spaces. There are enlarged submandibular lymph nodes on the right more than the left measured 1.4 cm on the right and 0.9 cm on the left. There is periapical lucency of the right mandible adjacent to the root of molar tooth, series 601 image 44/104. There is adjacent 1.9 x 0.8 cm nonenhancing fluid collection of the floor of the mouth medial to the mandible with possible abscess, series 2 image 53/103. Normal visualized nasopharynx. Normal retropharyngeal space. Normal perivertebral space. Normal visualized bilateral faucial tonsils. The visualized tongue, tongue base and oropharynx are normal. There are jugular lymph nodes measuring less than 1.0 cm There is no demonstrated solid or cystic mass lesion. There is no abnormal contrast enhancement. Normal epiglottis, bilateral vallecula and hypopharynx. The pre-epiglottic and paraglottic adipose spaces are normal. Normal visualized bilateral piriform sinuses, aryepiglottic folds, vocal cords, and arytenoid-cricoid articulations. Normal subglottic trachea. Normal bilateral lobes of the thyroid gland. Normal visualized pulmonary apices. Normal visualized paranasal sinuses. Normal visualized cervical spine. CT/Soft Tissue Neck WITH Contrast IMPRESSION: Fluid collection at the right floor the mouth adjacent to the mandible with possible abscess. Lucency of the mandible adjacent to the root of tooth with suggestion of osteomyelitis. Enlarged submandibular lymph nodes. Electronically Signed: Deng Adams MD at 18:37 EDT ,
[2023-04-29] MEDS: Ketorolac 15 MG/ML Vial IV (16:41)
[2023-04-29 16:53] LABS: Absolute Lymphocyte Count 2.28 X10^3/uL (0.83-4.51); Absolute Neutrophil Count 6.3 X10^3/uL (2.0-7.7); Basophil# 0.04 X10^3/uL; Basophil% 0.4 % (0-1); Eosinophil# 0.23 X10^3/uL; Eosinophils% 2.4 % (0-5); Hemoglobin 13.6 g/dL (12.0-15.0); Lymphocyte # 2.28 X10^3/ul (0.83-4.51); Lymphocyte % 23.7 % (19-41); Mean Corp Hgb Conc 32.4 g/dL (32-36); Mean Corpuscular Hgb 30.1 pg (27.0-32.0); Mean Corpuscular Volume 92.9 fL (81-99); Mean Platelet Vol. 10.3 fl (6.2-12.0); Monocyte# 0.77 X10^3/uL; NRBC Flagged by Analyzer 0 % (0-5); Neutrophil # 6.25 X10^3/uL (2.7-7.7); Neutrophil % 65.1 % (47-70); Platelet Count 248 K/mm3 (150-450); RBC Distribution Width CV 12.8 % (11.6-14.6); Red Blood Count 4.52 M/mm3 (4.2-5.4); White Blood Count 9.6 K/mm3 (4.4-11.0)
[2023-04-29] MEDS: Clindamycin 600 MG/50 ML BAG 100 MG IV (17:01)
[2023-04-29 17:27] LABS: Anion Gap 3 (5-15); BUN 13 mg/dL (7-18); BUN/Creat Ratio 14.8 RATIO (10-20); Calcium,Total 9.5 mg/dL (8.5-10.1); Chloride 106 mmol/L (98-107); Creatinine, Serum 0.88 mg/dL (0.55-1.02); EST Glomerular Filtration Rate 78 mL/min (>60); Est Glom Filt Rate - Afr Amer 95 mL/min (>60); Estimated Creatinine Clearance 77.05 ml/min; Glucose 84 mg/dL (74-106); Potassium 4.2 mmol/L (3.5-5.1); Sodium Level 137 mmol/L (136-145)
[2023-04-29 19:06] VITALS: BP 109/62; PULSE 70; RESP 16; TEMP 36.3; O2SAT 100
== END 2023-04-29 19:35 | disposition home or self-care (01) ==
PROVIDERS: Emergency Provider Emergency Medicine; PCP Family Medicine; Visit Provider Emergency Medicine
DX: K04.7 Periapical abscess without sinus (principal); Z87.891 Personal history of nicotine dependence; F41.9 Anxiety disorder, unspecified; Z79.899 Other long term (current) drug therapy; E28.2 Polycystic ovarian syndrome
CPT/HCPCS: 70491; 80048; 85025; 96365; 96375; 99283; J7030; Q9967; A4216